=== PATIENT | female | born 1970 | race Caucasian/White ===

== ENCOUNTER 2020-02-06 09:38 | Emergency (ER) | payer BC, SELFPAY ==
[2020-02-06 09:51] VITALS: BP 127/81; PULSE 79; RESP 12; TEMP 37; O2SAT 96; BMI 31.1
--- NOTE | 2020-02-06 10:16 | XR_ITS ---
WS: [id number] WRIST RIGHT TECHNIQUE: 3 views of the right wrist CLINICAL INFORMATION: right wrist pain COMPARISON: None. FINDINGS: Mild degenerative arthritis radiocarpal joint. Mild ulna minus variance. Degenerative arthritis at th e DRUJ. Normal scaphoid and lunate. No acute fractures. XR/XR wrist RT min 3V* 72500 IMPRESSION: No acute fractures
--- NOTE | 2020-02-06 10:44 | ED_ITS ---
HPI - Extremity Problem General: Chief complaint: Extremity Problem,Nontraumatic Stated complaint: R WRIST PAIN Time Seen by Provider: 02/06/20 10:23 History of Present Illness: HPI Narrative: 89-year-old female patient presents to the emergency department with acute onset of right wrist pain x3 days. She reports works for [employer], frequent typing, [id number]. She states numbness and tingling in the fifth digit of the right hand. She reports pain radiates from the right wrist to the right forearm and down the right ulnar hand. She reports pain is worse with movement. Improves with immobility. MD Complaint: joint pain (Right wrist) Onset (ago): day(s) (3) Pain Consistency: intermittent Location: right and upper extremity Severity scale (1-10): 6 Quality: burning, aching and dull Radiation: proximal and distal Relieving factors: immobilization Exacerbating factors: range of motion Associated symptoms: Reports no associated symptoms; Deny chest pain, fever(s) or rash Review of Systems General: Reports: 10 or more systems reviewed and unremarkable except in HPI and below Const: Denies: fever(s), chills or diaphoresis Eyes: Denies: blurry vision or eye redness ENMT: Denies: throat pain, dental pain or disequilibrium Card: Denies: chest pain, palpitations or irregular heart rhythm Resp: Denies: dyspnea, productive cough, non-productive cough or wheezing GI: Denies: abdominal pain, nausea or vomiting : Denies: difficulty voiding or dysuria Musc: Reports: joint pain (Right wrist); Denies: neck pain or back pain Skin/Breast: Denies: rash or pruritus Neuro: Denies: headache(s), weakness in extremities or behavioral changes Zachary/Lymph: Denies: easy bruising Physical Exam Const: COMMON NORMALS: no acute distress, patient oriented x3, healthy appearing and alert GENERAL APPEARANCE: cooperative, comfortable and well hydrated HENMT: COMMON NORMALS: normocephalic, Normal external nose present and moist oral mucous membranes HEAD & SCALP: normocephalic NOSE: Normal external nose present Eye: COMMON NORMALS: Equal, round and reactive pupils present and EOMs intact bilaterally GENERAL EYE: appearance normal, both eyes and all related structures PUPIL: Yes Equal, round and reactive pupils present Neck/C-Spine: COMMON NORMALS: full ROM and no lymphadenopathy GENERAL: Yes normal visual inspection and Yes trachea midline CERVICAL SPINE: Yes cervical ROM normal Lymph: LYMPHATIC: no lymphadenopathy noted Chest: COMMONS NORMALS: normal inspection of the chest Resp: COMMON NORMALS: normal respiratory effort and clear to auscultation bilaterally AUSCULTATION: clear to auscultation bilaterally Cardio: COMMON NORMALS: regular rhythm, S1 normal heart sound present, S2 normal heart sound present and Peripheral pulses 2+ throughout RHYTHM: regular rhythm HEART SOUNDS: S1 normal heart sound present and S2 normal heart sound present PERIPHERAL PULSES: Peripheral pulses 2+ throughout GI: COMMON NORMALS: Soft to palpation and non-tender INSPECTION: Yes normal to inspection PALPATION: Yes Soft to palpation : COMMON NORMALS: Yes no CVA tenderness BLADDER/KIDNEY EXAM: Yes no CVA tenderness Back/Pelvis: COMMON NORMALS: no CVA tenderness and thoracic and lumbar spine normal to inspection Extremity: COMMON NORMALS: normal to inspection and capillary refill normal GENERAL: Yes normal exam except as noted RIGHT UPPER EXTREMITY: Yes wrist Right wrist: Yes inspection (Normal), Yes palpation (Ulnar wrist with tenderness) and Yes ROM (Limited flexion extension secondary to pain, + tinel, Phalen, neurovascular distally intact) Neuro: COMMON NORMALS: patient oriented x3 and no focal motor deficits SENSORIUM/ORIENTATION: Yes alert GAIT: Yes Normal gait present MONOFILAMENT EXAM PERFORMED: Yes (Normal findings right upper extremity, right hand distally) MOTOR EXAM: 5/5 motor strength present throughout Psych: COMMON NORMALS: mental status grossly normal, Normal thought process present and cooperative ACTIVITY/MOTOR BEHAVIOR: Yes appropriate eye contact THOUGHT PROCESS: Normal thought process present Skin: COMMON NORMALS: no rashes or lesions noted and turgor normal GENERAL SKIN EXAM: no rashes or lesions noted and turgor normal Course Vital Signs: Vital signs: Vital Signs Temperature 98.6 F 02/06/20 09:51 Pulse Rate 67 02/06/20 11:02 Respiratory Rate 12 02/06/20 09:51 Blood Pressure 127/81 02/06/20 09:51 Pulse Oximetry 97 02/06/20 11:02 MDM - Extremity (Nontraumatic) Imaging Data^: Other Xray: Radiologist's impression: [address] [address] XRay Report Signed Patient: Ana Lilia Kerns Unit #: [id number] : 1970 Age/Sex: 49 / F ADM Date: 02/06/20 Loc: ER Room/Bed: Attending Dr: Ordering Provider/Ordering MD: Ana Lilia Rush Date of Service: 02/06/20 Procedure(s): XR wrist RT min 3V* 12909 Accession Number(s): [id number] Report Number: [id number] WS: [id number] WRIST RIGHT TECHNIQUE: 3 views of the right wrist CLINICAL INFORMATION: right wrist pain COMPARISON: None. FINDINGS: Mild degenerative arthritis radiocarpal joint. Mild ulna minus variance. Degenerative arthritis at the DRUJ. Normal scaphoid and lunate. No acute fractures. XR/XR wrist RT min 3V* 22243 IMPRESSION: No acute fractures Dictated By: Favian Mejia MD Signed By: Favian Mejia MD Signed Date/Time: 02/06/20 1030 DD/ 1029 Discharge Plan Discharge Patient Disposition: Home Clinical Impression: Right wrist pain, Right carpal tunnel syndrome Condition: Stable Prescriptions: New Medrol (Kayode) 4 mg tablets,dose pack See Rx Instructions .ROUTE .COMPLEX Qty: 21 RF: 0 IBU 800 mg tablet 800 mg PO TID PRN (Reason: pain) Qty: 30 RF: 0 Discharge Orders: Discharge Order (Routine); Ordered 02/06/20 Ordered By: Ana Lilia Rush Discharge Diet: Usual diet Discharge Activity: Limit activity as instructed Patient Instructions: Carpal Tunnel Syndrome (ED), Arthralgia (ED) Activity Restrictions/Additional Instructions: Wear right wrist splint as much as possible, wear especially at night. He may take the splint off as needed for showers and comfort, goal of splint is to keep wrist immobilized relaxing tendons. Follow-up with your primary care provider in 7 days, further evaluation/testing may be needed Return to the emergency department if you develop numbness of the hand, fever chills, swelling of the right upper extremity or inability to move your fingers. Stand Alone Forms: Work/School Release Discharge Date/Time: 02/06/20 11:01 Coding Level of Care Code ED Filling Room Operator for Olivia Fwd Exam Comprehensive
[2020-02-06 11:02] VITALS: PULSE 67; O2SAT 97
--- NOTE | 2020-02-06 14:10 | DCPLANNER ---
night manager had message to speak with patient about getting established with a primary care physician. night manager called phone number [phone], unable to speak with patient at this time, a voicemail was left for patient to return caseworker protective services phone call.
--- NOTE | 2020-02-07 10:44 | DCPLANNER ---
Patient returned lead case manager phone call, stated that she would like help in getting established with a primary care physician. condominium association manager [place] [facility], spoke with [place]. Gave clinic patients information, a follow up appointment was scheduled for Thursday, February 13, 2020 at 1:[address] Dorsey. condominium association manager called patient and informed patient of the scheduled appointment. Patient stated that she would attend the appointment.
--- NOTE | 2020-02-22 16:43 | DCPLANNER ---
Patient had a follow up appointment scheduled for 02.13.20 with [facility] with Dr. Dorsey - patient did attend appointment,
== END 2020-02-06 11:01 | disposition home or self-care (01) ==
PROVIDERS: Emergency Provider Nurse Practitioner Family
DX: G56.01 Carpal tunnel syndrome, right upper limb (principal)
CPT/HCPCS: 12345; 29125; 73110; 99281; 99283

== ENCOUNTER 2020-04-06 16:11 | Emergency (ER) | payer SELFPAY ==
[2020-04-06 16:19] VITALS: BP 136/82; PULSE 84; RESP 18; TEMP 36.4; O2SAT 97; BMI 31.1
[2020-04-06 18:00] VITALS: BP 104/54; PULSE 72; RESP 18; O2SAT 96
[2020-04-06 18:33] LABS: Add Urine Microscopic? NO
[2020-04-06 18:49] LABS: Urine Appearance Clear (CLEAR); Urine Color Yellow (Yellow); pH Urine 5 (5-7)
[2020-04-06 18:50] LABS: Bilirubin Urine Neg (Negative); Blood Urine Neg (Negative); Glucose Urine UA Norm (Normal); Ketones Urine Negative (Negative); Leukocyte Esterase Urine Negative (Negative); Nitrate Urine Negative (Negative); Protein Urine Neg (Negative); Urobilinogen Urine Norm (Negative)
--- NOTE | 2020-04-06 19:14 | W.ED.FEMALGU ---
HPI - Female Genitourinary General: Chief complaint: Urogenital-Female Stated complaint: lower back pain Time Seen by Provider: 04/06/20 17:19 Source: patient Mode of arrival: ambulatory Limitations: no limitations History of Present Illness: MD elicited complaint: flank pain Onset (ago): day(s) (1) Location of symptoms: flank Severity: severe Female Urogenital Radiation: Non-Radiating Severity scale (1-10): 10 Quality of pain: cramping Consistency: intermittent Vaginal discharge: none Vaginal bleeding: none Exacerbating factors: movement Relieving factors: none Associated symptoms: Deny abdominal pain, short of breath, fevers/chills, headache(s), nausea, rash, seizures, syncope, vaginal discharge or weakness Treatment prior to arrival: none Review of Systems General: Reports: 10 or more systems reviewed and unremarkable except in HPI and below Const: Denies: fever(s), chills or body aches Eyes: Denies: change in vision or blurry vision ENMT: Denies: throat pain, enlarged tonsils, odynophagia, hoarseness, mouth pain or swelling of lips/tongue Card: Denies: syncope Resp: Denies: dyspnea, productive cough or non-productive cough GI: Denies: abdominal pain or nausea : Denies: vaginal discharge Musc: Denies: neck pain, back pain or extremity swelling Skin/Breast: Denies: rash, pruritus or erythema Neuro: Denies: headache(s) Endo: Denies: polyuria, polydipsia or tired all the time PFS ED PFSH: Medical History Carpal tunnel syndrome of right wrist Chronic back pain greater than 3 months duration Hypertension Obesity (BMI 35.0-39.9 without comorbidity) Symptomatic postsurgical menopause Surgical History Hx of hysterectomy Family History Mother Cancer LEUKEMIA, Brain aneurysm Social History Smoking and tobacco status: current every day smoker cigarettes Packs smoked per day: 1 Alcohol intake: former 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 Physical Exam Const: COMMON NORMALS: no acute distress, average body habitus, patient oriented x3, no limitations, healthy appearing, alert and well nourished HENMT: COMMON NORMALS: normocephalic, atraumatic and moist oral mucous membranes HEAD & SCALP: normocephalic and atraumatic Neck/C-Spine: COMMON NORMALS: no meningeal signs and no JVD Resp: COMMON NORMALS: normal respiratory effort, No retractions, No use of accessory muscles, clear to auscultation bilaterally and percussion normal AUSCULTATION: clear to auscultation bilaterally PERCUSSION: percussion normal Cardio: COMMON NORMALS: no JVD, regular rate, regular rhythm, S1 normal heart sound present, S2 normal heart sound present, No gallops present (Cardio), No clicks present (Cardio), No murmurs present (Cardio), No rub (Cardio) and Peripheral pulses 2+ throughout RATE: regular rate RHYTHM: regular rhythm HEART SOUNDS: S1 normal heart sound present and S2 normal heart sound present PERIPHERAL PULSES: Peripheral pulses 2+ throughout GI: COMMON NORMALS: Normal to inspection, nondistended, normoactive bowel sounds present, Soft to palpation, non-tender, No hepatosplenomegaly present, no masses and no bruits PALPATION: Yes Soft to palpation and Yes No hepatosplenomegaly present Back/Pelvis: GENERAL BACK: Yes CVA tenderness CVA tenderness: right Extremity: COMMON NORMALS: normal to inspection, full ROM, capillary refill normal, no calf tenderness and no pedal edema Neuro: COMMON NORMALS: patient oriented x3 SENSORIUM/ORIENTATION: Yes alert MENINGEAL SIGNS: Yes no meningeal signs Skin: COMMON NORMALS: no rashes or lesions noted, no wounds, turgor normal, no jaundice, no petechiae and no mottling GENERAL SKIN EXAM: no rashes or lesions noted and turgor normal Course Vital Signs: Vital signs: Vital Signs Temperature 97.6 F 04/06/20 16:19 Pulse Rate 72 04/06/20 18:00 Respiratory Rate 18 04/06/20 18:00 Blood Pressure 104/54 04/06/20 18:00 Pulse Oximetry 96 04/06/20 18:00 MDM - Female [facility] Narrative: Medical decision making narrative: The patient presented to the ED with right flank pain. We discussed investigation options and she agreed to start with a UA because she felt she had a kidney infection. The patient however eloped from the ED before the results of her UA were in. Lab Data: Labs: Lab Results 04/06/20 Range/Units 17:53 Urine Color Yellow (Yellow) Urine Appearance Clear (CLEAR) Urine pH 5 (5-7) Ur Specific Gravit y 1.010 (1.005-1.030) Urine Protein Neg (Negative) Urine Glucose (UA) Norm (Normal) Urine Ketones Negative (Negative) Urine Blood Neg (Negative) Urine Nitrate Negative (Negative) Urine Bilirubin Neg (Negative) Urine Urobilinogen Norm (Negative) mg/dL Ur Leukocyte Elzbieta ase Negative (Negative) Discharge Plan Discharge Patient Disposition: Left Against Medical Advice Clinical Impression: Acute flank pain Prescriptions: No Action IBU 800 mg tablet 800 mg PO TID PRN (Reason: pain) Qty: 90 RF: 1 Prinivil 20 mg tablet 20 mg PO DAILY@0500 RF: 0 gabapentin 300 mg capsule 300 mg PO BID@ RF: 0 cetirizine 10 mg Tablet 10 mg PO DAILY@0500 RF: 0 Patient Instructions: Abdominal Pain (ED) Coding Level of Care Code ED [employer] Assistant for Olivia Fwd Exam Comprehensive
== END 2020-04-06 19:07 | disposition left against medical advice (07) ==
PROVIDERS: Emergency Provider Family Medicine
DX: R10.9 Unspecified abdominal pain (principal); Z53.21 Procedure and treatment not carried out due to patient leaving prior to being seen by health care provider; I10 Essential (primary) hypertension; F17.210 Nicotine dependence, cigarettes, uncomplicated
CPT/HCPCS: 12345; 81003; 99281; 99282

== ENCOUNTER → 2020-06-03 09:11 | Outpatient (BNVA) | payer OTHER, SELFPAY | PROVIDERS: Visit Provider Family Medicine | DX: Z20.822 Contact with and (suspected) exposure to COVID-19 (principal); R50.9 Fever, unspecified | CPT/HCPCS: 87400; 87635 ==

== ENCOUNTER → 2020-08-29 10:46 | Outpatient (BNVA) | payer SELFPAY | PROVIDERS: PCP Family Medicine Adult Medicine; Visit Provider Family Medicine Adult Medicine | DX: M25.541 Pain in joints of right hand (principal); M25.542 Pain in joints of left hand; E66.9 Obesity, unspecified; I10 Essential (primary) hypertension; Z68.33 Body mass index [BMI] 33.0-33.9, adult; F17.210 Nicotine dependence, cigarettes, uncomplicated | CPT/HCPCS: 80053; 80061; 83036; 84443; 85025; 85651; 86160; 86162; 86235; 86255; 86376 ==

== ENCOUNTER → 2020-12-01 10:35 | Outpatient (BNVA) | payer SELFPAY | PROVIDERS: PCP Family Medicine Adult Medicine; Visit Provider Nurse Practitioner Family | DX: J06.9 Acute upper respiratory infection, unspecified (principal); Z20.822 Contact with and (suspected) exposure to COVID-19 | CPT/HCPCS: 87426 ==

== ENCOUNTER 2020-12-03 08:18 | Outpatient (CLI) | payer SELFPAY ==
[2020-12-03 09:10] VITALS: BP 116/77; PULSE 103; RESP 16; TEMP 37; O2SAT 97
[2020-12-03 11:17] VITALS: BP 111/74; PULSE 61; RESP 18; TEMP 36.6; O2SAT 97
== END 2020-12-03 14:11 | disposition home or self-care (01) ==
PROVIDERS: PCP Family Medicine Adult Medicine; Visit Provider Nurse Practitioner Family
DX: U07.1 COVID-19 (principal)
CPT/HCPCS: 96365

== ENCOUNTER 2023-10-03 14:16 | Emergency (ER) | payer MEDICAID, SELFPAY ==
[2023-10-03 14:19] VITALS: BP 153/83; PULSE 66; RESP 14; TEMP 36.8; O2SAT 96
== END 2023-10-03 15:16 | disposition left against medical advice (07) ==
PROVIDERS: Emergency Provider Family Medicine; PCP Family Medicine Adult Medicine
DX: Z53.21 Procedure and treatment not carried out due to patient leaving prior to being seen by health care provider (principal)
CPT/HCPCS: 81000

== ENCOUNTER → 2023-10-05 10:55 | Outpatient (BNVA) | payer MEDICAID, SELFPAY | PROVIDERS: PCP Family Medicine Adult Medicine; Visit Provider Family Medicine Adult Medicine | DX: M16.11 Unilateral primary osteoarthritis, right hip (principal); I10 Essential (primary) hypertension; E78.5 Hyperlipidemia, unspecified; M25.541 Pain in joints of right hand; M25.542 Pain in joints of left hand; Z79.899 Other long term (current) drug therapy | CPT/HCPCS: 80053; 80061; 84443; 85025; 85651 ==

== ENCOUNTER → 2023-11-02 13:37 | Outpatient (BNVA) | payer MEDICAID, SELFPAY | PROVIDERS: PCP Family Medicine Adult Medicine; Referring Provider Family Medicine Adult Medicine; Visit Provider Nurse Practitioner | DX: M25.551 Pain in right hip (principal); M16.11 Unilateral primary osteoarthritis, right hip | CPT/HCPCS: 73502 ==

== ENCOUNTER 2023-12-20 11:07 | Outpatient (CLI) | payer MEDICAID, SELFPAY ==
[2023-12-20 11:27] LABS: Charge for UA Resulting for Rev
[2023-12-20 11:32] LABS: Basophils % 0.2 %; Eosinophils # 0.2 10^3/uL (0.0-0.8); Eosinophils % 1.3 %; Hematocrit 46.6 % (36-47); Lymphocytes # 4.3 10^3/uL (0.8-4.8); Lymphocytes % 32.2 %; Mean Corpuscular HGB Conc 32.8 g/dL (30-55); Mean Corpuscular Hemoglobin 31.3 pg (27-33); Mean Corpuscular Volume 95.3 fl (85-98); Mean Platelet Volume 11.8 fL (7.4-10.4); Monocytes % 7.1 %; Neutrophils # 7.93 10^3/uL (1.8-7.7); Nucleated Red Blood Cells % 0 %; Platelet Count 248 10^3/cmm (157-399); Red Blood Count 4.89 10^6/uL (3.85-5.65); Red Cell Distribution Width 12.6 % (12.1-15.1); White Blood Count 13.44 10^3/uL (3.29-11.43)
[2023-12-20 11:45] LABS: Bilirubin Urine Neg (Negative); Blood Urine Neg (Negative); Glucose Urine UA Norm (Normal); Ketones Urine Negative (Negative); Leukocyte Esterase Urine Negative (Negative); Nitrate Urine Negative (Negative); Protein Urine Neg (Negative); Specific Gravity, Urine 1.005 (1.005-1.030); Urine Appearance Clear (CLEAR); Urine Color Yellow (Yellow); Urobilinogen Urine Norm (Negative); pH Urine 7 (5-7)
[2023-12-20 11:54] LABS: Alanine Aminotransferase 22 U/L (0-33); Albumin Level 4.4 g/dL (3.5-5.2); Alkaline Phosphatase 122 U/L (35-105); Aspartate Amino Transferase 26 U/L (0-32); Blood Urea Nitrogen 12 mg/dL (6-20); Carbon Dioxide 24 mmol/L (22-29); Chloride 105 mmol/L (98-107); Glomerular Filtration Rate 105.4 mL/min (90-130); Glucose 122 mg/dL (65-115); Osmolality Calculated 293 mOsm/kg (285-295); Sodium 141 mmol/L (136-145); Total Bilirubin 0.3 mg/dL (0.15-1.2); Total Protein 7.4 g/dL (6.6-8.7)
[2023-12-20 12:29] LABS: Slide Review Slide Review Perform
== END 2023-12-20 11:08 | disposition home or self-care (01) ==
PROVIDERS: PCP Family Medicine Adult Medicine; Visit Provider Specialist
DX: M16.11 Unilateral primary osteoarthritis, right hip (principal)
CPT/HCPCS: 36415; 80053; 81003; 81015; 85025

== ENCOUNTER 2023-12-23 15:39 | Emergency (ER) | payer MEDICAID, SELFPAY ==
[2023-12-23 15:47] VITALS: BP 121/79; PULSE 78; RESP 16; TEMP 36.7; O2SAT 94
--- NOTE | 2023-12-23 16:38 | XRR_ITS ---
PROCEDURE INFORMATION: Exam: XR Chest Exam date and time: 12/23/2023 4:43 PM Age: 53 years old Clinical indication: Shortness of breath; Dyspnea/cough, weakness, dizziness, fatigue TECHNIQUE: Imaging protocol: Radiologic exam of the chest. Views: 1 view. COMPARISON: No relevant prior studies available. FINDINGS: Lungs: Unremarkable. No consolidation. Pleural spaces: Unremarkable. No pleural effusion. No pneumothorax. Heart/Mediastinum: Unremarkable. No cardiomegaly. Bones/joints: Unremarkable. XR/XR chest 1V portable [id number] IMPRESSION: No acute findings.
--- NOTE | 2023-12-23 16:53 | ECG_ITS ---
[facility] Test Date: 2023-12-23 Pat Name: Ana Lilia Kerns Department: Room: Gender: Female Investment Fund Manager: : 1970 Requested By: Toño Mike Order Number: [id number] Morel MD: Krishan Serrato M.D. Measurements Intervals [place] Rate: 70 P: 53 [place]: 155 QRS: 22 QRSD: 85 T: 44 QT: 383 QTc: 415 Interpretive Statements SINUS RHYTHM POSSIBLE LEFT ATRIAL ENLARGEMENT [-0.1mV P-WAVE IN V1/V2] LOW QRS VOLTAGE IN PRECORDIAL LEADS [QRS DEFLECTION < 1.0 mV IN CHEST LEADS] No previous ECG available for comparison Electronically Signed On 12-23-2023 20:02:37 CDT by Krishan Serrato M.D. [id number]
[2023-12-23 16:59] LABS: Charge for UA Resulting for Rev
[2023-12-23 17:00] VITALS: BP 111/80; PULSE 69; O2SAT 93
--- NOTE | 2023-12-23 17:04 | ED_ITS ---
Documented by User: Toño Mae DO 12/24/23 13:53 HPI - Weakness 2 General: Chief complaint: Weakness Stated complaint: dizziness/fatigue/ nausea Time Seen by Provider: 12/23/23 16:37 History of Present Illness: 53-year-old female presents emergency ro om with dizziness fatigue nausea states for the last 2 to 3 weeks every day in the afternoon she reports she has flulike symptoms for which she also knows to change positions sometimes. Vertiginous symptoms resolved spontaneously. She had chest pain management for the last 3 days not having any chest pain at all at this time. 3 days ago she was seen for preop work for right hip surgery that is upcoming her white count was slightly elevated at that time she denies any fevers sweats or chills denies any dysuria urgency or frequency no nausea vomiting or diarrhea. Is currently wearing a Holter monitor. Associated symptoms: Denies chest pain, chills, dysuria or fever(s) Review of Systems 2 Const: Reports: fatigue and malaise; Denies: fever(s) or chills Card: Denies: chest pain Resp: Denies: dyspnea GI: Denies: abdominal pain : Denies: dysuria, urinary frequency or urinary urgency Musc: Denies: neck pain or back pain Skin/Breast: Denies: rash PFSH ED 2 PFSH: Medical History Elevated blood pressure reading in office with white coat syndrome, without diagnosis of hypertension Chronic back pain greater than 3 months duration Osteoarthritis of right hip Dyslipidemia (high LDL; low HDL) Joint pain in both hands Obesity (BMI 35.0-39.9 without comorbidity) Hypertension Carpal tunnel syndrome of right wrist Symptomatic postsurgical menopause Surgical History Hx of hysterectomy Family History Mother Cancer LEUKEMIA, Brain aneurysm Social History Smoking and tobacco/nicotine status: never used tobacco/nicotine Alcohol intake: former 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 Substance/Drug Use: never Physical Exam 2 Const: COMMON NORMALS: no acute distress GENERAL APPEARANCE: cooperative and comfortable ORIENTATION/CONSCIOUSNESS: Yes awake, Yes oriented to person, Yes oriented to place and Yes oriented to time HENMT: COMMON NORMALS: normocephalic, atraumatic and hearing grossly normal bilaterally HEAD & SCALP: normocephalic and atraumatic Resp: COMMON NORMALS: normal respiratory effort, No retractions, No use of accessory muscles and clear to auscultation bilaterally AUSCULTATION: clear to auscultation bilaterally Cardio: COMMON NORMALS: regular rate, regular rhythm and No murmurs present (Cardio) RATE: regular rate RHYTHM: regular rhythm GI: COMMON NORMALS: Soft to palpation and No hepatosplenomegaly present A USCULTATION: Yes normoactive bowel sounds PALPATION: Yes Soft to palpation, No Tenderness to palpation present (GI), No Guarding due to palpation present (GI) and Yes No hepatosplenomegaly present Extremity: COMMON NORMALS: normal to inspection, capillary refill normal, no clubbing, cyanosis or edema, no calf tenderness and no pedal edema Neuro: SENSORIUM/ORIENTATION: Yes oriented to person, Yes oriented to place and Yes oriented to time Skin: COMMON NORMALS: no rashes or lesions noted GENERAL SKIN EXAM: no rashes or lesions noted Course 2 Vital Signs: Vital signs: Vital Signs Temperature 98.1 F 12/23/23 15:47 Pulse Rate 78 12/23/23 21:13 Respiratory Rate 21 H 12/23/23 18:30 Blood Pressure 127/52 12/23/23 21:13 Pulse Oximetry 97 12/23/23 21:13 Oxygen Delivery Me thod Room Air 12/23/23 17:30 MDM - Weakness Medical Decision Making Care signed out to Dr. Mcduffie at change of shift. See final notes for diagnosis and disposition. Patient care was transferred over to myself at shift change, lab work was reviewed, this was discussed with the patient. Patient be discharged home to follow-up with her PCP within 7 days for further evaluation and treatment as needed. Medical Records I reviewed the patient's medical records. Lab Data I reviewed the patient's lab results. 12/23/23 16:55 12/23/23 16:55 Radiology Impressions Chest X-Ray 12/23/23 16:38 IMPRESSION: No acute findings. Laboratory Results WBC 15.24 10^3/uL (3.29-11.43) H 12/23/23 16:55 RBC 5.01 10^6/uL (3.85-5.65) 12/23/23 16:55 Hgb 15.70 g/dL (11.27-16.99) 12/23/23 16:55 Hct 47.2 % (36-47) H 12/23/23 16:55 MCV 94.2 fl (85-98) 12/23/23 16:55 MCH 31.3 pg (27-33) 12/23/23 16:55 MCHC 33.3 g/dL (30-55) 12/23/23 16:55 RDW 12.6 % (12.1-15.1) 12/23/23 16:55 Plt Count 246 10^3/cmm (157-399) 12/23/23 16:55 MPV 11.7 fL (7.4-10.4) H 12/23/23 16:55 Neut % (Auto) 60.5 % 12/23/23 16:55 Lymph % (Auto) 31.2 % 12/23/23 16:55 Worth % (Auto) 6.8 % 12/23/23 16:55 Eos % (Auto) 0.9 % 12/23/23 16:55 Baso % (Auto) 0.3 % 12/23/23 16:55 Neut # (Auto) 9.22 10^3/uL (1.8-7.7) H 12/23/23 16:55 Lymph # (Auto) 4.8 10^3/uL (0.8-4.8) 12/23/23 16:55 Worth # (Auto) 1.0 10^3/uL (0.2-0.9) H 12/23/23 16:55 Eos # (Auto) 0.1 10^3/uL (0.0-0.8) 12/23/23 16:55 Baso # (Auto) 0.0 10^3/uL (0.0-0.1) 12/23/23 16:55 Nucleated RBC % (auto) 0 % 12/23/23 16:55 Nucleated RBCs # 0.0 /100WBC 12/23/23 16:55 Sodium 140 mmol/L (136-145) 12/23/23 16:55 Potassium 4.2 mmol/L (3.5-5.1) 12/23/23 16:55 Chloride 103 mmol/L (98-107) 12/23/23 16:55 Carbon Dioxide 26 mmol/L (22-29) 12/23/23 16:55 Anion Gap 15.2 (5-19) 12/23/23 16:55 BUN 17 mg/dL (6-20) 12/23/23 16:55 Creatinine 0.7 mg/dL (0.5-0.9) 12/23/23 16:55 GFR Calculation 88.2 mL/min (90-130) L 12/23/23 16:55 Glucose 93 mg/dL (65-115) 12/23/23 16:55 Calculated Osmolality 291 mOsm/kg (285-295) 12/23/23 16:55 Calcium 9.5 mg/dL (8.5-10.5) 12/23/23 16:55 Total Bilirubin 0.4 mg/dL (0.15-1.2) 12/23/23 16:55 AST 25 U/L (0-32) 12/23/23 16:55 ALT 26 U/L (0-33) 12/23/23 16:55 Alkaline Phosphatase 103 U/L (35-105) 12/23/23 16:55 Total Protein 7.3 g/dL (6.6-8.7) 12/23/23 16:55 Albumin 4.5 g/dL (3.5-5.2) 12/23/23 16:55 Globulin 2.8 g/dL (1.3-4.6) 12/23/23 16:55 Urine Color Yellow (Yellow) 12/23/23 16:53 Urine Appearance Clear (CLEAR) 12/23/23 16:53 Urine pH 6.5 (5-7) 12/23/23 16:53 Ur Specific [place] 1.017 (1.005-1.030) 12/23/23 16:53 Urine Protein Negative (Negative) 12/23/23 16:53 Urine Glucose (UA) Negative (Normal) 12/23/23 16:53 Urine Ketones Negative (Negative) 12/23/23 16:53 Urine Blood Negative (Negative) 12/23/23 16:53 Urine Nitrate Negative (Negative) 12/23/23 16:53 Urine Bilirubin Negative (Negative) 12/23/23 16:53 Urine Urobilinogen 1.0 mg/dL (Negative) 12/23/23 16:53 Ur Leukocyte Esterase Negative (Negative) 12/23/23 16:53 Urine RBC 3-5 /hpf (0-2) 12/23/23 16:53 Urine WBC 0-5 /hpf (0-5) 12/23/23 16:53 Ur Squamous Epith Cells 0-5 /hpf (0-5) 12/23/23 16:53 Amorphous Sediment Not Reportable 12/23/23 16:53 Urine Bacteria None seen /hpf (NONE) 12/23/23 16:53 Hyaline Casts 0.40 /lpf 12/23/23 16:53 Coronavirus 229E (PCR) Not detected (NOT DETECT) 12/23/23 17:13 SARS-CoV-2 (PCR) Not detected (NOT DETECT) 12/23/23 17:13 EKG Data EKG 1: Interpretation: EKG shows a normal sinus rhythm with a rate of [address] changes are noted IA interval 155 QTc is 404. Normal axis. Discharge Plan Discharge Patient Disposition: Home Clinical Impression: Dizziness Nausea & vomiting Qualifiers: Vomiting type: unspecified Qualified Code(s): R11.2 - Nausea with vomiting, unspecified Fatigue Qualifiers: Fatigue type: unspecified Qualified Code(s): R53.83 - Other fatigue Condition: Stable Prescriptions: No Action methocarbamol 750 mg tablet 750 mg PO Q8H PRN (Reason: muscle spasticity) Qty: 30 0RF loratadine 10 mg tablet 10 mg PO DAILY PRN (Reason: allergy symptoms) Qty: 90 3RF gabapentin 300 mg capsule See Rx Instructions .ROUTE .COMPLEX Qty: 60 5RF Dose Instruction: TAKE 1 CAPSULE BY MOUTH TWO TIMES A DAY FOR CHRONIC PAIN AND POST MENOPAUSAL SYMPTOMS Rx Instructions: TAKE 1 CAPSULE BY MOUTH TWO TIMES A DAY FOR CHRONIC PAIN AND POST MENOPAUSAL SYMPTOMS fluticasone propionate [Flonase Allergy Relief] 50 mcg/actuation spray,suspension 2 spray intranasal DAILY Qty: 16 5RF Rx Instructions: administer into each nostril ibuprofen 200 mg tablet 200 mg PO Q6H PRN (Reason: pain) Qty: 90 1RF Discharge Orders: Discharge ED (Routine); Ordered 12/23/23 Ordered By: Cristi Mcduffie Referrals: Denzel Maharaj MD [Primary Care Provider] - 1 week Patient Instructions: Acute Nausea and Vomiting (DC), Dizziness (ED), Fatigue (ED) Activity Restrictions/Additional Instructions: Your lab work performed in ER did not show any reason for your symptomatology. Your white blood count was still mildly elevated at approximately 15,000, please follow-up with your family practice physician within next 7 days for further evaluation and treatment as needed. Thank you for choosing [facility] for your healthcare needs today. Please realize that you were seen in the emergency department and that we are providing you with an emergency medical screening exam and this may not be a complete and all exclusive of all testing and/or medical workup we may need to determine your element or severity of your illness. It is very important that you follow-up as instructed with your primary care provider or specialist for the additional evaluation and to discuss your medical treatment plan. You may return to the emergency department should you have concerns or if your condition changes or worsens in any way. Coding Level of Care Code ED Nutrition Helper for Chg Fwd Related Data Previous Rx's Medication Instructions Recorded fluticasone propionate 50 2 spray intranasal DAILY allergy 10/06/23 mcg/actuation nasal symptoms #16 grams spray,suspension (Flonase Allergy Relief) gabapentin 300 mg capsule See Rx Instructions .Route 10/06/23 .COMPLEX #60 caps loratadine 10 mg tablet 10 mg PO DAILY PRN allergy 10/06/23 symptoms #90 tabs methocarbamol 750 mg tablet 750 mg PO Q8H PRN muscle 11/01/23 spasticity #30 tabs ibuprofen 200 mg tablet 200 mg PO Q6H PRN pain #90 tabs 11/29/23 Allergies Allergy/AdvReac Type Severity Reaction Status Date / Time No Known Allergies Allergy Verified 12/23/23 15:53 Documented by User: Cristi Mcduffie DO 12/23/23 21:04 HPI - Weakness 2 General: Chief complaint: Weakness Stated complaint: dizziness/fatigue/ nausea Time Seen by Provider: 12/23/23 16:37 PFSH ED 2 PFSH: Medical History Elevated blood pressure reading in office with white coat syndrome, without diagnosis of hypertension Chronic back pain greater than 3 months duration Osteoarthritis of right hip Dyslipidemia (high LDL; low HDL) Joint pain in both hands Obesity (BMI 35.0-39.9 without comorbidity) Hypertension Carpal tunnel syndrome of right wrist Symptomatic postsurgical menopause Surgical History Hx of hysterectomy Family History Mother Cancer LEUKEMIA, Brain aneurysm Social History Smoking and tobacco/nicotine status: never used tobacco/nicotine Alcohol intake: former 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 Substance/Drug Use: never Course 2 Vital Signs: Vital signs: Vital Signs Temperature 98.1 F 12/23/23 15:47 Pulse Rate 78 12/23/23 21:13 Respiratory Rate 21 H 12/23/23 18:30 Blood Pressure 127/52 12/23/23 21:13 Pulse Oximetry 97 12/23/23 21:13 Oxygen Delivery Me thod Room Air 12/23/23 17:30 MDM - Weakness Medical Decision Making Patient care was transferred over to myself at shift change, lab work was reviewed, this was discussed with the patient. Patient be discharged home to follow-up with her PCP within 7 days for further evaluation and treatment as needed. Lab Data 12/23/23 16:55 12/23/23 16:55 Radiology Impressions Chest X-Ray 12/23/23 16:38 IMPRESSION: No acute findings. Laboratory Results WBC 15.24 10^3/uL (3.29-11.43) H 12/23/23 16:55 RBC 5.01 10^6/uL (3.85-5.65) 12/23/23 16:55 Hgb 15.70 g/dL (11.27-16.99) 12/23/23 16:55 Hct 47.2 % (36-47) H 12/23/23 16:55 MCV 94.2 fl (85-98) 12/23/23 16:55 MCH 31.3 pg (27-33) 12/23/23 16:55 MCHC 33.3 g/dL (30-55) 12/23/23 16:55 RDW 12.6 % (12.1-15.1) 12/23/23 16:55 Plt Count 246 10^3/cmm (157-399) 12/23/23 16:55 MPV 11.7 fL (7.4-10.4) H 12/23/23 16:55 Neut % (Auto) 60.5 % 12/23/23 16:55 Lymph % (Auto) 31.2 % 12/23/23 16:55 Worth % (Auto) 6.8 % 12/23/23 16:55 Eos % (Auto) 0.9 % 12/23/23 16:55 Baso % (Auto) 0.3 % 12/23/23 16:55 Neut # (Auto) 9.22 10^3/uL (1.8-7.7) H 12/23/23 16:55 Lymph # (Auto) 4.8 10^3/uL (0.8-4.8) 12/23/23 16:55 Worth # (Auto) 1.0 10^3/uL (0.2-0.9) H 12/23/23 16:55 Eos # (Auto) 0.1 10^3/uL (0.0-0.8) 12/23/23 16:55 Baso # (Auto) 0.0 10^3/uL (0.0-0.1) 12/23/23 16:55 Nucleated RBC % (auto) 0 % 12/23/23 16:55 Nucleated RBCs # 0.0 /100WBC 12/23/23 16:55 Sodium 140 mmol/L (136-145) 12/23/23 16:55 Potassium 4.2 mmol/L (3.5-5.1) 12/23/23 16:55 Chloride 103 mmol/L (98-107) 12/23/23 16:55 Carbon Dioxide 26 mmol/L (22-29) 12/23/23 16:55 Anion Gap 15.2 (5-19) 12/23/23 16:55 BUN 17 mg/dL (6-20) 12/23/23 16:55 Creatinine 0.7 mg/dL (0.5-0.9) 12/23/23 16:55 GFR Calculation 88.2 mL/min (90-130) L 12/23/23 16:55 Glucose 93 mg/dL (65-115) 12/23/23 16:55 Calculated Osmolality 291 mOsm/kg (285-295) 12/23/23 16:55 Calcium 9.5 mg/dL (8.5-10.5) 12/23/23 16:55 Total Bilirubin 0.4 mg/dL (0.15-1.2) 12/23/23 16:55 AST 25 U/L (0-32) 12/23/23 16:55 ALT 26 U/L (0-33) 12/23/23 16:55 Alkaline Phosphatase 103 U/L (35-105) 12/23/23 16:55 Total Protein 7.3 g/dL (6.6-8.7) 12/23/23 16:55 Albumin 4.5 g/dL (3.5-5.2) 12/23/23 16:55 Globulin 2.8 g/dL (1.3-4.6) 12/23/23 16:55 Urine Color Yellow (Yellow) 12/23/23 16:53 Urine Appearance Clear (CLEAR) 12/23/23 16:53 Urine pH 6.5 (5-7) 12/23/23 16:53 Ur Specific [place] 1.017 (1.005-1.030) 12/23/23 16:53 Urine Protein Negative (Negative) 12/23/23 16:53 Urine Glucose (UA) Negative (Normal) 12/23/23 16:53 Urine Ketones Negative (Negative) 12/23/23 16:53 Urine Blood Negative (Negative) 12/23/23 16:53 Urine Nitrate Negative (Negative) 12/23/23 16:53 Urine Bilirubin Negative (Negative) 12/23/23 16:53 Urine Urobilinogen 1.0 mg/dL (Negative) 12/23/23 16:53 Ur Leukocyte Esterase Negative (Negative) 12/23/23 16:53 Urine RBC 3-5 /hpf (0-2) 12/23/23 16:53 Urine WBC 0-5 /hpf (0-5) 12/23/23 16:53 Ur Squamous Epith Cells 0-5 /hpf (0-5) 12/23/23 16:53 Amorphous Sediment Not Reportable 12/23/23 16:53 Urine Bacteria None seen /hpf (NONE) 12/23/23 16:53 Hyaline Casts 0.40 /lpf 12/23/23 16:53 Coronavirus 229E (PCR) Not detected (NOT DETECT) 12/23/23 17:13 SARS-CoV-2 (PCR) Not detected (NOT DETECT) 12/23/23 17:13 All radiology interpretation(s) finalized by discharge Discharge Plan Discharge Patient Disposition: Home Clinical Impression: Dizziness Nausea & vomiting Qualifiers: Vomiting type: unspecified Qualified Code(s): R11.2 - Nausea with vomiting, unspecified Fatigue Qualifiers: Fatigue type: unspecified Qualified Code(s): R53.83 - Other fatigue Condition: Stable Prescriptions: No Action methocarbamol 750 mg tablet 750 mg PO Q8H PRN (Reason: muscle spasticity) Qty: 30 0RF loratadine 10 mg tablet 10 mg PO DAILY PRN (Reason: allergy symptoms) Qty: 90 3RF gabapentin 300 mg capsule See Rx Instructions .ROUTE .COMPLEX Qty: 60 5RF Dose Instruction: TAKE 1 CAPSULE BY MOUTH TWO TIMES A DAY FOR CHRONIC PAIN AND POST MENOPAUSAL SYMPTOMS Rx Instructions: TAKE 1 CAPSULE BY MOUTH TWO TIMES A DAY FOR CHRONIC PAIN AND POST MENOPAUSAL SYMPTOMS fluticasone propionate [Flonase Allergy Relief] 50 mcg/actuation spray,suspension 2 spray intranasal DAILY Qty: 16 5RF Rx Instructions: administer into each nostril ibuprofen 200 mg tablet 200 mg PO Q6H PRN (Reason: pain) Qty: 90 1RF Discharge Orders: Discharge ED (Routine); Ordered 12/23/23 Ordered By: Cristi Mcduffie Referrals: Denzel Maharaj MD [Primary Care Provider] - 1 week Patient Instructions: Acute Nausea and Vomiting (DC), Dizziness (ED), Fatigue (ED) Activity Restrictions/Additional Instructions: Your lab work performed in ER did not show any reason for your symptomatology. Your white blood count was still mildly elevated at approximately 15,000, please follow-up with your family practice physician within next 7 days for further evaluation and treatment as needed. Thank you for choosing [facility] for your healthcare needs today. Please realize that you were seen in the emergency department and that we are providing you with an emergency medical screening exam and this may not be a complete and all exclusive of all testing and/or medical workup we may need to determine your element or severity of your illness. It is very important that you follow-up as instructed with your primary care provider or specialist for the additional evaluation and to discuss your medical treatment plan. You may return to the emergency department should you have concerns or if your condition changes or worsens in any way. Coding Level of Care Code ED Nutrition Helper for Olivia Fwd Related Data Previous Rx's Medication Instructions Recorded fluticasone propionate 50 2 spray intranasal DAILY allergy 10/06/23 mcg/actuation nasal symptoms #16 grams spray,suspension (Flonase Allergy Relief) gabapentin 300 mg capsule See Rx Instructions .Route 10/06/23 .COMPLEX #60 caps loratadine 10 mg tablet 10 mg PO DAILY PRN allergy 10/06/23 symptoms #90 tabs methocarbamol 750 mg tablet 750 mg PO Q8H PRN muscle 11/01/23 spasticity #30 tabs ibuprofen 200 mg tablet 200 mg PO Q6H PRN pain #90 tabs 11/29/23 Allergies Allergy/AdvReac Type Severity Reaction Status Date / Time No Known Allergies Allergy Verified 12/23/23 15:53
[2023-12-23 17:08] LABS: Bilirubin Urine Negative (Negative); Blood Urine Negative (Negative); Glucose Urine UA Negative (Normal); Ketones Urine Negative (Negative); Leukocyte Esterase Urine Negative (Negative); Nitrate Urine Negative (Negative); Protein Urine Negative (Negative); Specific Gravity, Urine 1.017 (1.005-1.030); Urine Appearance Clear (CLEAR); Urine Color Yellow (Yellow); pH Urine 6.5 (5-7)
[2023-12-23 17:10] LABS: Basophils % 0.3 %; Eosinophils # 0.1 10^3/uL (0.0-0.8); Eosinophils % 0.9 %; Hematocrit 47.2 % (36-47); Lymphocytes # 4.8 10^3/uL (0.8-4.8); Lymphocytes % 31.2 %; Mean Corpuscular HGB Conc 33.3 g/dL (30-55); Mean Corpuscular Hemoglobin 31.3 pg (27-33); Mean Corpuscular Volume 94.2 fl (85-98); Mean Platelet Volume 11.7 fL (7.4-10.4); Monocytes % 6.8 %; Neutrophils # 9.22 10^3/uL (1.8-7.7); Neutrophils % 60.5 %; Nucleated Red Blood Cells % 0 %; Platelet Count 246 10^3/cmm (157-399); Red Blood Count 5.01 10^6/uL (3.85-5.65); Red Cell Distribution Width 12.6 % (12.1-15.1); White Blood Count 15.24 10^3/uL (3.29-11.43)
[2023-12-23 17:15] LABS: Bacteria Urine None Seen /hpf; Squamous Epithelial Cell Urine 0-5 /hpf (0-5); WBC Urine 0-5 /hpf (0-5)
[2023-12-23 17:20] LABS: Alanine Aminotransferase 26 U/L (0-33); Albumin Level 4.5 g/dL (3.5-5.2); Alkaline Phosphatase 103 U/L (35-105); Anion Gap 15.2 (5-19); Aspartate Amino Transferase 25 U/L (0-32); Blood Urea Nitrogen 17 mg/dL (6-20); Calcium 9.5 mg/dL (8.5-10.5); Carbon Dioxide 26 mmol/L (22-29); Chloride 103 mmol/L (98-107); Creatinine Clr Calc Pharmacy 91.2519; Globulin 2.8 g/dL (1.3-4.6); Glomerular Filtration Rate 88.2 mL/min (90-130); Glucose 93 mg/dL (65-115); Osmolality Calculated 291 mOsm/kg (285-295); Potassium 4.2 mmol/L (3.5-5.1); Sodium 140 mmol/L (136-145); Total Bilirubin 0.4 mg/dL (0.15-1.2); Total Protein 7.3 g/dL (6.6-8.7)
[2023-12-23] MEDS: sodium chloride 0.9% 1,000 ML 999 ML IV (17:28)
[2023-12-23 17:30] VITALS: BP 134/76; PULSE 70; RESP 12; O2SAT 94
[2023-12-23 18:00] VITALS: BP 142/71; PULSE 69; RESP 19; O2SAT 96
[2023-12-23 18:16] LABS: Slide Review Slide Review Perform
[2023-12-23 18:30] VITALS: BP 115/64; PULSE 74; RESP 21; O2SAT 97
[2023-12-23 19:23] LABS: Adenovirus Not Detected (NOT DETECT); Chlamydia Pneumoniae Not Detected (NOT DETECT); Coronavirus 229E,HKU1,NL63,OC4 Not Detected (NOT DETECT); Human Metapneumovirus Not Detected (NOT DETECT); Human Rhinovirus/Enterovirus Not Detected (NOT DETECT); Influenza A Not Detected (NOT DETECT); Influenza A H1 Not Detected (NOT DETECT); Influenza A H1-2009 Not Detected (NOT DETECT); Influenza A H3 Not Detected (NOT DETECT); Influenza B Not Detected (NOT DETECT); Mycoplasma Pneumoniae Not Detected (NOT DETECT); Parainfluenza Virus Type 1 Not Detected (NOT DETECT); Parainfluenza Virus Type 2 Not Detected (NOT DETECT); Parainfluenza Virus Type 3 Not Detected (NOT DETECT); Parainfluenza Virus Type 4 Not Detected (NOT DETECT); Respiratory Syncytial Virus A Not Detected (NOT DETECT); Respiratory Syncytial Virus B Not Detected (NOT DETECT); SARS-COV-2 Not Detected (NOT DETECT)
[2023-12-23 21:13] VITALS: BP 127/52; PULSE 78; O2SAT 97
== END 2023-12-23 21:15 | disposition home or self-care (01) ==
PROVIDERS: Emergency Provider Family Medicine; PCP Family Medicine Adult Medicine
DX: R42 Dizziness and giddiness (principal); R11.2 Nausea with vomiting, unspecified; R53.83 Other fatigue; Z11.52 Encounter for screening for COVID-19; E78.5 Hyperlipidemia, unspecified; I10 Essential (primary) hypertension
CPT/HCPCS: 36415; 71045; 80053; 81003; 81015; 85025; 87635; 93005; 99285; J7030

== ENCOUNTER 2024-01-06 12:22 | Outpatient (CLI) | payer MEDICAID, SELFPAY | END 2024-01-06 12:23 | disposition home or self-care (01) | LOC: LAB 12:23 | PROVIDERS: PCP Family Medicine Adult Medicine; Visit Provider Family Medicine | DX: A49.9 Bacterial infection, unspecified (principal) | CPT/HCPCS: 87040 ==

== ENCOUNTER → 2024-01-17 11:35 | Outpatient (BNVA) | payer MEDICAID, SELFPAY | PROVIDERS: PCP Family Medicine Adult Medicine; Visit Provider Family Medicine | DX: Z01.818 Encounter for other preprocedural examination (principal) | CPT/HCPCS: 80053; 81003; 85025 ==

== ENCOUNTER → 2024-01-23 09:34 | Outpatient (BNVA) | payer MEDICAID, SELFPAY | PROVIDERS: PCP Family Medicine Adult Medicine; Visit Provider Family Medicine | DX: I10 Essential (primary) hypertension (principal); D72.829 Elevated white blood cell count, unspecified; M25.50 Pain in unspecified joint; R00.0 Tachycardia, unspecified; R53.83 Other fatigue | CPT/HCPCS: 82607; 82746; 83615; 83735; 84439; 84481; 85007; 85027; 86140; 86160; 86162; 86235; 86255; 86376; 86431; 87086 ==

== ENCOUNTER 2024-02-02 08:05 | Oncology outpatient (recurring) (ONCR) | payer MEDICAID, SELFPAY ==
[2024-02-02 08:58] LABS: Basophils % 0.3 %; Eosinophils # 0.1 10^3/uL (0.0-0.8); Eosinophils % 0.8 %; Lymphocytes # 5.3 10^3/uL (0.8-4.8); Mean Corpuscular HGB Conc 32.8 g/dL (30-55); Mean Corpuscular Hemoglobin 31.4 pg (27-33); Mean Corpuscular Volume 95.6 fl (85-98); Mean Platelet Volume 11.6 fL (7.4-10.4); Monocytes % 6.6 %; Neutrophils # 8.54 10^3/uL (1.8-7.7); Neutrophils % 56.8 %; Nucleated Red Blood Cells % 0 %; Platelet Count 259 10^3/cmm (157-399); Red Blood Count 4.81 10^6/uL (3.85-5.65); Red Cell Distribution Width 13.3 % (12.1-15.1); White Blood Count 15.02 10^3/uL (3.29-11.43)
[2024-02-02 09:14] LABS: Alanine Aminotransferase 18 U/L (0-33); Albumin Level 4.2 g/dL (3.5-5.2); Alkaline Phosphatase 117 U/L (35-105); Anion Gap 15.8 (5-19); Aspartate Amino Transferase 17 U/L (0-32); Blood Urea Nitrogen 11 mg/dL (6-20); Calcium 8.9 mg/dL (8.5-10.5); Carbon Dioxide 26 mmol/L (22-29); Chloride 102 mmol/L (98-107); Creatinine Clr Calc Pharmacy 93.1582; Globulin 2.7 g/dL (1.3-4.6); Glomerular Filtration Rate 88.2 mL/min (90-130); Glucose 82 mg/dL (65-115); Lactate Dehydrogenase 287 U/L (135-214); Osmolality Calculated 288 mOsm/kg (285-295); Potassium 3.8 mmol/L (3.5-5.1); Sodium 140 mmol/L (136-145); Total Bilirubin 0.3 mg/dL (0.15-1.2); Total Protein 6.9 g/dL (6.6-8.7)
[2024-02-03 12:55] LABS: Leukemia Profile (BBPL) See Report
[2024-02-08 12:15] LABS: Soluble Transferrin Receptor 1.42 mg/L (0.76-1.76)
== END 2024-03-01 23:59 | disposition home or self-care (01) ==
PROVIDERS: PCP Family Medicine Adult Medicine; Visit Provider Internal Medicine Hematology & Oncology
DX: R79.82 Elevated C-reactive protein (CRP) (principal); D72.829 Elevated white blood cell count, unspecified; Z53.9 Procedure and treatment not carried out, unspecified reason
CPT/HCPCS: 36415; 80053; 83615; 84238; 85025; 86140; 88184; 88185

== ENCOUNTER 2024-02-17 08:43 | Outpatient (CLI) | payer MEDICAID, SELFPAY ==
--- NOTE | 2024-02-17 08:45 | CTR_ITS ---
PROCEDURE INFORMATION: Exam: CT Chest Without and With Contrast; Diagnostic Exam date and time: 02/17/2024 9:44 AM Age: 53 years old Clinical indication: Abnormal findings; Abnormal lab test; Elevated wbc; Abnormal diagnostic tests; Abnormal ekg; Prior surgery; Surgery date: 6+ months; Surgery type: Hyst; Additional info: Persistent elevated wbc count; Blood cx neg; R/O malignancy TECHNIQUE: Imaging protocol: Diagnostic computed tomography of the chest without and with contrast. Radiation optimization: All CT scans at this facility use at least one of these dose optimization techniques: automated exposure control; mA and/or kV adjustment per patient size (includes targeted exams where dose is matched to clinical indication); or iterative reconstruction. Contrast material: OMNI 350; Contrast volume: 100 ml; Contrast route: INTRAVENOUS (IV); COMPARISON: CR XR chest 1V portable [id number] 12/23/2023 4:43 PM RADIATION DOSE METRICS: Total DLP (mGy-cm): 1622.53 FINDINGS: Thyroid: Left thyroid nodule x 0.8 cm of which no dedicated follow-up ultrasound is necessary. Lungs: Unremarkable. No consolidation. No masses. Pleural spaces: Unremarkable. No pneumothorax. No pleural effusion. Heart: Unremarkable. No cardiomegaly. No pericardial effusion. Coronary arteries: No visible coronary calcification. Lymph nodes: Several prominent mediastinal lymph nodes, measuring up to 1.0 cm in short axis (series 6, image 22). Vasculature: Unremarkable. No aortic aneurysm. Bones/joints: No acute fracture. Soft tissues: Right anterior chest subcutaneous soft tissue lesion measuring 1.1 cm (series 6, image 19). PROCEDURE INFORMATION: Exam: CT Abdomen And Pelvis Without And With Contrast Exam date and time: 02/17/2024 9:44 AM Age: 53 years old Clinical indication: Abnormal findings; Abnormal lab test; Elevated wbc; Abnormal diagnostic tests; Abnormal ekg; Prior surgery; Surgery date: 6+ months; Surgery type: Hyst; Additional info: Persistent elevated wbc count; Blood cx neg; R/O malignancy TECHNIQUE: Imaging protocol: Computed tomography of the abdomen and pelvis without and with contrast. Radiation optimization: All CT scans at this facility use at least one of these dose optimization techniques: automated exposure control; mA and/or kV adjustment per patient size (includes targeted exams where dose is matched to clinical indication); or iterative reconstruction. Contrast material: OMNI 350; Contrast volume: 100 ml; Contrast route: INTRAVENOUS (IV); COMPARISON: CR XR hip RT 2-3V wo/w pel* [id number] 11/02/2023 1:39 PM RADIATION DOSE METRICS: Total DLP (mGy-cm): 1622.53 FINDINGS: Liver: Enlarged liver with diffuse fatty infiltration. Gallbladder and biliary ducts: Unremarkable. No calcified stones. No ductal dilation. Pancreas: Unremarkable. No ductal dilation. Spleen: Unremarkable. No mass. Adrenal glands: Enhancing left adrenal lesion x 2.0 cm. Kidneys and ureters: Unremarkable. No stone or hydronephrosis. Stomach and bowel: Interposition of a loop of colon between the right hemidiaphragm and liver. No obstruction. No significant mucosal thickening. Appendix: No evidence of appendicitis. Intraperitoneal space: No free air. No significant fluid collection. Vasculature: No abdominal aortic aneurysm. Lymph nodes: Scattered prominent lymph nodes, notably in the portacaval and right lower quadrant measuring upwards of 1.1 cm. Urinary bladder: Unremarkable as visualized. Reproductive: Unremarkable as visualized. Bones/joints: Severe right hip degenerative joint disease. Soft tissues: No bowel containing hernia. CT/CT [facility] wo/w [id number] IMPRESSION: 1. Mediastinal adenopathy, nonspecific. 2. Left thyroid nodule x 0.8 cm of which no dedicated follow-up ultrasound is necessary based on size. 3. Subcutaneous soft tissue lesion at the right anterior chest wall which may be a sebaceous cyst. Consider visual inspection. IMPRESSION: 1. Indeterminate enhancing left adrenal lesion x 2.0 cm; malignancy including metastasis not excluded. 2. Portacaval and right lower quadrant adenopathy, nonspecific. 3. Enlarged fatty liver.
[2024-02-17] MEDS: iohexol 350 mg/mL 500 mL Btl (per mL) IV (09:58)
[2024-02-17] MEDS: iohexol 350 mg/mL 500 mL Btl (per mL) PO (09:59)
== END 2024-02-17 08:44 | disposition home or self-care (01) ==
LOC: RAD 08:44
PROVIDERS: PCP Family Medicine Adult Medicine; Visit Provider Family Medicine
DX: D72.829 Elevated white blood cell count, unspecified (principal); R74.02 Elevation of levels of lactic acid dehydrogenase [LDH]; R79.82 Elevated C-reactive protein (CRP); E04.1 Nontoxic single thyroid nodule; K76.0 Fatty (change of) liver, not elsewhere classified; D35.02 Benign neoplasm of left adrenal gland; R93.3 Abnormal findings on diagnostic imaging of other parts of digestive tract
CPT/HCPCS: 71260; 74178

== ENCOUNTER → 2024-03-11 13:11 | Outpatient (BNVA) | payer MEDICAID, SELFPAY | PROVIDERS: PCP Family Medicine Adult Medicine; Visit Provider Emergency Medicine | DX: S82.142A Displaced bicondylar fracture of left tibia, initial encounter for closed fracture (principal); M25.462 Effusion, left knee; M17.12 Unilateral primary osteoarthritis, left knee; M25.562 Pain in left knee | CPT/HCPCS: 73562 ==

== ENCOUNTER 2024-03-16 06:35 | Oncology outpatient (recurring) (ONCR) | payer MEDICAID, SELFPAY ==
--- NOTE | 2024-03-16 07:00 | CT_ITS ---
WS: [id number] CT LEFT KNEE, NONCONTRAST HISTORY: fracture Technique: All CT scans at [facility] use at least one of these dose optimization techniques: automated exposure control; mA and/or kV adjustment per patient size (includes targeted exams where dose is matched to clinical indication); or iterative reconstruction. DLP: 510.67 mGy.cm COMPARISON: Radiograph 03/11/2024 Comminuted lateral tibial plateau fracture depressed by approximately 5 mm. No involvement of the tib ial spines or medial tibial plateau. Femoral condyles are intact. Fracture predominantly involves the posterior surface of the tibial plateau. No loose bodies extending into the joint. Patella remains in normal position. There is a moderate size joint effusion. CT/CT knee LT wo con* [id number] IMPRESSION: 1. Posterolateral mildly depressed tibial plateau fracture. Fracture is commin uted and depressed by 5 mm. 2. Moderate joint effusion.
== END 2024-03-31 23:59 | disposition home or self-care (01) ==
LOC: RAD 06:36 → ONCMED 08:17
PROVIDERS: PCP Family Medicine Adult Medicine; Visit Provider Specialist
DX: R79.82 Elevated C-reactive protein (CRP) (principal); D72.829 Elevated white blood cell count, unspecified; Z53.9 Procedure and treatment not carried out, unspecified reason; S82.142A Displaced bicondylar fracture of left tibia, initial encounter for closed fracture
CPT/HCPCS: 73700

== ENCOUNTER 2024-03-20 08:14 | Outpatient (CLI) | payer MEDICAID, SELFPAY ==
[2024-03-20 08:46] LABS: Bilirubin Urine Negative (Negative); Blood Urine Negative (Negative); Glucose Urine UA Negative (Normal); Ketones Urine Trace (Negative); Leukocyte Esterase Urine Trace (Negative); Nitrate Urine Negative (Negative); Protein Urine Negative (Negative); Specific Gravity, Urine 1.026 (1.005-1.030); Urine Appearance Clear (CLEAR); Urine Color Dark Yellow (Yellow); pH Urine 5.5 (5-7)
[2024-03-20 08:47] LABS: Basophils % 0.2 %; Eosinophils # 0.1 10^3/uL (0.0-0.8); Eosinophils % 0.5 %; Lymphocytes # 4.9 10^3/uL (0.8-4.8); Lymphocytes % 25.2 %; Mean Corpuscular HGB Conc 32.3 g/dL (30-55); Mean Corpuscular Hemoglobin 30.8 pg (27-33); Mean Corpuscular Volume 95.2 fl (85-98); Mean Platelet Volume 11.6 fL (7.4-10.4); Monocytes # 1.3 10^3/uL (0.2-0.9); Monocytes % 6.9 %; Neutrophils # 12.98 10^3/uL (1.8-7.7); Neutrophils % 66.7 %; Nucleated Red Blood Cells % 0 %; Platelet Count 311 10^3/cmm (157-399); Red Blood Count 5.04 10^6/uL (3.85-5.65); Red Cell Distribution Width 13.1 % (12.1-15.1); White Blood Count 19.47 10^3/uL (3.29-11.43)
[2024-03-20 08:51] LABS: Add Urine Microscopic? YES; Bacteria Urine Trace /hpf; Hyaline Casts Urine 2.46 /lpf; RBC Urine 0-2 /hpf (0-2); Squamous Epithelial Cell Urine 0-5 /hpf (0-5); WBC Urine 0-5 /hpf (0-5)
[2024-03-20 09:07] LABS: Alanine Aminotransferase 16 U/L (0-33); Albumin Level 4.3 g/dL (3.5-5.2); Alkaline Phosphatase 112 U/L (35-105); Anion Gap 16.1 (5-19); Aspartate Amino Transferase 17 U/L (0-32); Blood Urea Nitrogen 17 mg/dL (6-20); Calcium 9.8 mg/dL (8.5-10.5); Carbon Dioxide 26 mmol/L (22-29); Chloride 102 mmol/L (98-107); Globulin 3.4 g/dL (1.3-4.6); Glomerular Filtration Rate 75.3 mL/min (90-130); Glucose 82 mg/dL (65-115); Osmolality Calculated 291 mOsm/kg (285-295); Potassium 4.1 mmol/L (3.5-5.1); Sodium 140 mmol/L (136-145); Total Bilirubin 0.4 mg/dL (0.15-1.2); Total Protein 7.7 g/dL (6.6-8.7)
== END 2024-03-20 08:15 | disposition home or self-care (01) ==
LOC: LAB 08:14
PROVIDERS: PCP Family Medicine Adult Medicine; Visit Provider Specialist
DX: S82.142A Displaced bicondylar fracture of left tibia, initial encounter for closed fracture (principal); X58.XXXA Exposure to other specified factors, initial encounter; M94.262 Chondromalacia, left knee
CPT/HCPCS: 36415; 80053; 81001; 85025

== ENCOUNTER → 2024-03-21 08:29 | Outpatient (BNVA) | payer MEDICAID, SELFPAY | PROVIDERS: PCP Family Medicine Adult Medicine; Visit Provider Specialist | DX: S82.122A Displaced fracture of lateral condyle of left tibia, initial encounter for closed fracture (principal); X58.XXXA Exposure to other specified factors, initial encounter | CPT/HCPCS: 73562 ==

== ENCOUNTER → 2024-04-05 08:55 | Outpatient (BNVA) | payer MEDICAID, SELFPAY | PROVIDERS: PCP Family Medicine Adult Medicine; Visit Provider Specialist | DX: S82.122D Displaced fracture of lateral condyle of left tibia, subsequent encounter for closed fracture with routine healing (principal); X58.XXXD Exposure to other specified factors, subsequent encounter | CPT/HCPCS: 73562 ==

== ENCOUNTER 2024-04-06 07:33 | Oncology outpatient (recurring) (ONCR) | payer MEDICAID, SELFPAY ==
[2024-04-06 08:10] LABS: Basophils % 0.2 %; Eosinophils # 0.1 10^3/uL (0.0-0.8); Eosinophils % 1.2 %; Hematocrit 47.8 % (36-47); Lymphocytes # 3.9 10^3/uL (0.8-4.8); Lymphocytes % 36.2 %; Mean Corpuscular HGB Conc 32.2 g/dL (30-55); Mean Corpuscular Volume 96.2 fl (85-98); Mean Platelet Volume 11.8 fL (7.4-10.4); Monocytes # 0.7 10^3/uL (0.2-0.9); Monocytes % 6.9 %; Neutrophils # 5.87 10^3/uL (1.8-7.7); Neutrophils % 55.1 %; Nucleated Red Blood Cells % 0 %; Platelet Count 250 10^3/cmm (157-399); Red Blood Count 4.97 10^6/uL (3.85-5.65); White Blood Count 10.64 10^3/uL (3.29-11.43)
[2024-04-06 08:15] LABS: Erythrocyte Sedimentation Rate 8 mm/hr (0-15)
[2024-04-06 08:16] LABS: Alanine Aminotransferase 24 U/L (0-33); Albumin Level 4.3 g/dL (3.5-5.2); Alkaline Phosphatase 116 U/L (35-105); Anion Gap 15.3 (5-19); Aspartate Amino Transferase 25 U/L (0-32); Blood Urea Nitrogen 8 mg/dL (6-20); Calcium 9.5 mg/dL (8.5-10.5); Carbon Dioxide 26 mmol/L (22-29); Chloride 103 mmol/L (98-107); Globulin 2.7 g/dL (1.3-4.6); Glomerular Filtration Rate 87.9 mL/min (90-130); Glucose 120 mg/dL (65-115); Lactate Dehydrogenase 249 U/L (135-214); Osmolality Calculated 290 mOsm/kg (285-295); Potassium 4.3 mmol/L (3.5-5.1); Sodium 140 mmol/L (136-145); Total Bilirubin 0.3 mg/dL (0.15-1.2)
[2024-04-06 14:18] LABS: Ferritin 184 ng/mL (15-150); Iron 94 ug/dL (37-145); Percent Saturation 27.2 % (20-50); Total Iron Binding Capacity 345 mcg/dl; Unsaturated Iron Binding 251 ug/dL (112-347)
== END 2024-05-01 23:59 | disposition home or self-care (01) ==
PROVIDERS: Internal Medicine Hematology & Oncology; PCP Family Medicine Adult Medicine; Visit Provider Specialist
DX: D72.829 Elevated white blood cell count, unspecified
CPT/HCPCS: 36415; 80053; 82728; 83540; 83550; 83615; 85025; 85651

== ENCOUNTER → 2024-04-18 10:10 | Outpatient (BNVA) | payer MEDICAID, SELFPAY | PROVIDERS: Visit Provider Specialist | DX: S82.122D Displaced fracture of lateral condyle of left tibia, subsequent encounter for closed fracture with routine healing (principal); X58.XXXD Exposure to other specified factors, subsequent encounter | CPT/HCPCS: 73562 ==

== ENCOUNTER 2024-04-20 09:08 | Outpatient (CLI) | payer MEDICAID, SELFPAY ==
--- NOTE | 2024-04-20 09:20 | MM_ITS ---
WS: [id number] SCREENING DIGITAL BREAST TOMOSYNTHESIS MAMMOGRAM WITH CAD HISTORY: screening COMPARISON: None available. Bilateral CC and MLO with tomosynthesis and synthetic mammography submitted. Computer aided detection analyzed. Breast composition: The breasts are almost entirely fatty. High density mass in the posterior medial RIGHT breast measures 12 x 9 x 13 mm. Mass is well-circumscribed. No calcifications associated with t he mass. The remaining breasts are negative. MM/MM [facility] tomosynthesis [id number] IMPRESSION: BI-RADS: 0 - Incomplete: Need additional imaging evaluation. FOLLOW UP: Need Additional Imaging Recommendation: RIGHT breast ultrasound, limited Ultrasound directed to the posterior RIGHT breast at 3:00.
== END 2024-04-20 09:09 | disposition home or self-care (01) ==
DX: Z12.31 Encounter for screening mammogram for malignant neoplasm of breast (principal); R92.313 Mammographic fatty tissue density, bilateral breasts; N63.11 Unspecified lump in the right breast, upper outer quadrant
CPT/HCPCS: 77063; 77067

== ENCOUNTER → 2024-05-23 11:09 | Outpatient (BNVA) | payer MEDICAID, SELFPAY | PROVIDERS: Visit Provider Specialist | DX: S82.122D Displaced fracture of lateral condyle of left tibia, subsequent encounter for closed fracture with routine healing (principal); X58.XXXD Exposure to other specified factors, subsequent encounter | CPT/HCPCS: 73562 ==

== ENCOUNTER 2024-05-29 07:28 | Oncology outpatient (recurring) (ONCR) | payer MEDICAID, SELFPAY ==
--- NOTE | 2024-05-29 07:56 | CT_ITS ---
WS: [id number] CT adrenals with and without contrast. HISTORY: f/u on adrenal mass Noncontrast 2 mm imaging is performed through the abdomen with attention to the adrenal glands. Addit ional 1 minute and 15 minute delayed images are then performed through the adrenal glands. CONTRAST: Omnipaque 350; 95 mL IV. DLP: 1126.[address] scans at [facility] use at least one of these dose optimization techniques: automated e xposure control; mA and/or kV adjustment per patient size (includes targeted exams where dose is matc hed to clinical indication); or iterative reconstruction. COMPARISON: 02/17/2024 Lower thorax: Lung bases are clear. Normal size heart. Liver: Mild hepatomegaly. No mass. No intrahepatic duct dilatation. Normal portal vein. Gallbladder: Normal. Pancreas: Normal. Spleen: Normal. ADRENAL GLANDS. RIGHT: Normal. No mass or enlargement. LEFT: Well-circumscribed low-attenuation LEFT adrenal mass measures 1.4 x 2.0 cm. Hounsfield units ar e low on the noncontrast study indicating a benign adenoma. Absolute washout value of 77% consistent with an adenoma also. Right kidney: Normal. Left kidney: Normal. Aorta: Mild atherosclerosis. Retroaortic LEFT renal vein. GI tract: As visualized normal. No adenopathy or free fluid. Abdominal wall: No hernia. Visualized osseous structures: Unremarkable. CT/CT abdomen wo/w con [id number] IMPRESSION: 1. Benign LEFT adrenal adenoma measuring 1.4 x 2.0 cm. 2. Mild hepatomegaly. 3. Mild atherosclerosis abdominal aorta.
[2024-05-29] MEDS: iohexol 350 mg/mL 500 mL Btl (per mL) IV (08:00)
== END 2024-06-01 23:59 | disposition home or self-care (01) ==
LOC: RAD 12:32 → ONCMED 05-31 09:26
PROVIDERS: Visit Provider Specialist
DX: D72.829 Elevated white blood cell count, unspecified (principal); R92.8 Other abnormal and inconclusive findings on diagnostic imaging of breast; E27.8 Other specified disorders of adrenal gland
CPT/HCPCS: 74170

== ENCOUNTER → 2024-06-13 10:55 | Outpatient (BNVA) | payer MEDICAID, SELFPAY | PROVIDERS: Visit Provider Specialist | DX: S82.122D Displaced fracture of lateral condyle of left tibia, subsequent encounter for closed fracture with routine healing (principal); X58.XXXD Exposure to other specified factors, subsequent encounter | CPT/HCPCS: 73560; 73565 ==

== ENCOUNTER 2024-06-25 07:29 | Oncology outpatient (recurring) (ONCR) | payer MEDICAID, SELFPAY ==
[2024-06-25 07:47] LABS: Basophils % 0.2 %; Eosinophils # 0.1 10^3/uL (0.0-0.8); Eosinophils % 0.6 %; Hematocrit 47.1 % (36-47); Lymphocytes % 30.8 %; Mean Corpuscular HGB Conc 32.3 g/dL (30-55); Mean Corpuscular Hemoglobin 30.3 pg (27-33); Mean Platelet Volume 11.7 fL (7.4-10.4); Monocytes # 0.6 10^3/uL (0.2-0.9); Monocytes % 6.4 %; Neutrophils # 6.02 10^3/uL (1.8-7.7); Neutrophils % 61.8 %; Nucleated Red Blood Cells % 0 %; Platelet Count 231 10^3/cmm (157-399); Red Blood Count 5.01 10^6/uL (3.85-5.65); Red Cell Distribution Width 12.8 % (12.1-15.1); White Blood Count 9.74 10^3/uL (3.29-11.43)
[2024-06-25 08:09] LABS: Alanine Aminotransferase 19 U/L (0-33); Albumin Level 4.3 g/dL (3.5-5.2); Alkaline Phosphatase 126 U/L (35-105); Anion Gap 14.6 (5-19); Aspartate Amino Transferase 19 U/L (0-32); Blood Urea Nitrogen 9 mg/dL (6-20); Calcium 9.2 mg/dL (8.5-10.5); Carbon Dioxide 25 mmol/L (22-29); Chloride 109 mmol/L (98-107); Creatinine Clr Calc Pharmacy 107.4634; Globulin 2.6 g/dL (1.3-4.6); Glucose 89 mg/dL (65-115); Lactate Dehydrogenase 253 U/L (135-214); Osmolality Calculated 296 mOsm/kg (285-295); Potassium 4.6 mmol/L (3.5-5.1); Sodium 144 mmol/L (136-145); Total Bilirubin 0.3 mg/dL (0.15-1.2); Total Protein 6.9 g/dL (6.6-8.7)
[2024-06-25 12:25] LABS: Add Urine Microscopic? NO
[2024-06-25 12:43] LABS: Bilirubin Urine Negative (Negative); Blood Urine Negative (Negative); Glucose Urine UA Negative (Normal); Ketones Urine Negative (Negative); Leukocyte Esterase Urine Negative (Negative); Nitrate Urine Negative (Negative); Protein Urine Negative (Negative); Specific Gravity, Urine 1.016 (1.005-1.030); Urine Appearance Clear (CLEAR); Urine Color Yellow (Yellow); Urobilinogen Urine 0.2 mg/dL (Negative)
[2024-06-25 13:07] LABS: Add Urine Culture? No; Charge for UA Resulting for Rev
== END 2024-06-29 23:59 | disposition home or self-care (01) ==
PROVIDERS: Nurse Practitioner Family; Visit Provider Specialist
DX: D72.829 Elevated white blood cell count, unspecified (principal); M16.11 Unilateral primary osteoarthritis, right hip
CPT/HCPCS: 36415; 73502; 80053; 81003; 83615; 85025

== ENCOUNTER → 2024-08-03 10:56 | Outpatient (BNVA) | payer MEDICAID, SELFPAY | PROVIDERS: Visit Provider Family Medicine | DX: Z01.818 Encounter for other preprocedural examination (principal) | CPT/HCPCS: 80053; 81003; 85007; 85027 ==

== ENCOUNTER 2024-08-14 15:58 | Observation (INO) | payer MEDICAID, SELFPAY ==
[2024-08-14] VITALS (17 sets, daily range): BP systolic 96–137; BP diastolic 60–105; PULSE 68–92; RESP 15–17; TEMP 36.2–36.8; O2SAT 88–99; BMI 34.0; BMI 37.5
[2024-08-14] MEDS: sodium chloride 0.9% 1,000 ML 30 ML IV (12:57)
--- NOTE | 2024-08-14 13:07 | P.HPUD_ITS ---
Surgery/Procedure H&P Update DATE OF PROCEDURE: August 14, 2024 DATE H&P PERFORMED: 08/03/24 H&P UPDATE INFORMATION: I have reviewed H&P completed within last 30 days, I have examined patient prior to procedure, No changes to prior documentation, H&P is in [facility] EMR on date indicated and Risks and benefits of the procedure reviewed PREOP DIAGNOSIS: Primary osteoarthritis right hip PLANNED PROCEDURE: Operation Date: 08/14/24 13:50 Proposed Procedures p Total Hip Arthroplasty(Right) - Simran Hankins MD Related Problem List Diagnoses (1) Osteoarthritis of right hip: Qualifiers: Osteoarthritis type: primary Qualified Code(s): M16.11 - Unilateral primary osteoarthritis, right hip
[2024-08-14] MEDS: acetaminophen 1,000 MG/100 ML PIGGYBACK 400 MG IV ×2 (13:08→20:18)
[2024-08-14] MEDS: CELEcoxib 200 mg Capsule 400 MG PO (13:13)
--- NOTE | 2024-08-14 13:38 | P.ANESASSM_ITS ---
Pre-Anesthetic Assessment Height/Weight: Height 1.55 m Weight 81.647 kg Temp Pulse Resp BP Pulse Ox O2 Del Method 97.2 F L 82 17 137/105 97 Room Air 08/14/24 12:22 08/14/24 12:22 08/14/24 12:22 08/14/24 12:22 08/14/24 12:22 08/14/24 12:22 Preop Diagnosis: Primary osteoarthritis right hip Operation Date: 08/14/24 13:50 Proposed Procedures p Total Hip Arthroplasty(Right) - Simran Hankins MD Last intake: Intake Last Liquid Date 08/13/24 Last Liquid Time 22:40 Last Solid Date 08/13/24 Last Solid Time 03:30 Social Tobacco and No alcohol Exam alert, oriented x 3, clear to auscultation bilaterally and regular rate & rhythm Airway Submandibular: within normal limits Cervical ROM: within normal limits Mallampati: Class II Pulmonary Chronic Obstructive Pulmonary Disease CV/HEM Arrythmia and Hypertension Metabolic Hyperlipidemia and Morbid Obesity Anesthetic Plan ASA status: 3 Anesthesia: General Other: declined SAB Medications/Allergies Home Medications ?Medication ?Instructions ?Recorded ?Confirmed ?Last Taken ?Type multivitamin 1 tab PO DAILY 01/17/2407/3108/13/24 History walker #1 ea 03/12/24 07/28/24 Unkn own Rx Lateral School Librarian Brace #1 ea 03/21/24 07/28/24 Unkn own Rx lisinopril 10 mg tablet 10 mg PO DAILY #30 tabs 04/0108/13/24 08/13/24 Rx exenatide 5 mcg/dose (250 5 mcg (0.02 mL) SUBCUT BID # 1.2 mL 06/13/24 08/14/24 06/29/24 Rx mcg/mL)1.2 mL subcutaneous pen injector ibuprofen 600 mg tablet 600 mg PO Q8H PRN pain #30 t abs 07/28/24 08/13/2404/25 Rx fluticasone propionate 50 2 spray intranasal DAILY PRN 08/13/24 08/13/24 Unknown History mcg/actuation nasal allergy symptoms spray,suspension (Flonase Allergy Relief) gabapentin 300 mg capsule 300 mg PO BID 08/14/2408/1408/14/24 04:30 History Allergies Allergy/AdvReac Type Severity Reaction Status Date / Time No Known Allergies Allergy Verified 08/14/24 12:22 Current Medications Generic Name Dose Route Start Last Admin Trade Name Lauren PRN Reason Stop Dose Admin Sodium Chloride 1,000 mls @ 30 mls/hr 08/14/24 12:15 08/14/24 12:57 Sodium Chloride 0.9% IV 08/15/24 12:14 30 mls/hr .Q24H KRISTY Administration PFSH Anesthesia Medical History Skin tag Abnormal mammogram of right breast Screening for breast cancer 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; on CT 02/22; to repeat 3 months Elevated serum lactate dehydrogenase (LDH) Nicotine dependence, cigarettes, uncomplicated Elevated white blood cell count, unspecified Tachycardia Arthralgia Elevated blood pressure reading in office with white coat syndrome, without diagnosis of hypertension Chronic back pain greater than 3 months duration Osteoarthritis of right hip Dyslipidemia (high LDL; low HDL) Joint pain in both hands Obesity (BMI 35.0-39.9 without comorbidity) Hypertension Carpal tunnel syndrome of right wrist Symptomatic postsurgical menopause Surgical History Hx of hysterectomy Total Hyst w/ BSO; done for cysts; in her 30s; no hx of cancer Family History Mother Cancer LEUKEMIA, Brain aneurysm Father CAD (coronary artery disease) Scleroderma Social History Smoking and tobacco/nicotine status: current every day tobacco/nicotine user cigarettes Packs smoked per day: 1 Alcohol intake: former 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 Substance/Drug Use: never Household members: spouse and children Marital status: Number of children: 4 Highest education level completed: 10th Grade Current occupational status: unemployed 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
[2024-08-14] MEDS: ceFAZolin 2,000 mg SDV 2000 MG IVP ×2 (13:50→20:22)
[2024-08-14] MEDS: tranexamic acid 1,000 mg/10mL SDV 1000 MG IV (14:19)
[2024-08-14] MEDS: ceFAZolin 1,000 mg SDV 1000 MG IRRIGATION (14:49)
[2024-08-14] MEDS: BUPivacaine 0.5% INJ 10 mL 20 ML INJECTION (14:50)
[2024-08-14] MEDS: BUPivacaine liposome 13.3 mg/mL SDV 20 mL 266 MG INJECTION (14:50)
[2024-08-14] MEDS: VANCOMYCIN ADD-Vantage 1,000 MG VIAL 1000 MG XX (14:53)
--- NOTE | 2024-08-14 16:34 | XRR_ITS ---
PROCEDURE INFORMATION: Exam: XR Pelvis Exam date and time: 08/14/2024 4:32 PM Age: 54 years old Clinical indication: Device placement; Prior surgery; Surgery date: Post-operative (0-2 days); Surgery type: Post op RT hip; Additional info: S/P kirsten, low ap pelvis TECHNIQUE: Imaging protocol: Radiologic exam of the pelvis. Views: 1 or 2 view. COMPARISON: CR XR hip RT 2-3V wo/w pel* [id number] 06/25/2024 10:47 AM FINDINGS: Bones/joints: A right hip prosthesis is well seated and well aligned. Soft tissues: Soft tissue air is noted. XR/XR pelvis 1-2V* [id number] IMPRESSION: Intact postoperative hip prosthesis
--- NOTE | 2024-08-14 16:42 | PM.OP ---
Operative Report Date of procedure: August 14, 2024 Pre-op diagnosis: Severe degenerative osteoarthritis right hip with femoral head collapse Post-op diagnosis: Severe degenerative osteoarthritis right hip with femoral head collapse and large acetabular osteophytes Post-op findings: Large osteophytes circumferentially about the acetabulum Procedure done: Right total hip arthroplasty Implants: The Ann total hip system with the following implants: A 52 mm Trident II solid back acetabular shell with an E Alpha code, an MDM cementless liner 42 mm inner diameter by E alpha code and Accolade II size 5 with 127 degree neck angle hip stem with a 28 mm outer diameter +0 mm neck offset and a presybeterian X3 insert size 28 mm inner diameter by 42E Specimens removed/disposition: Bone, disposed of Pathology: None Surgeon: Simran Hankins MD Recruiting Manager: Nicolasa Durán, nurse practitioner, who services were required for positioning, exposure, retraction, and closure. Anesthesia: General (Intubated, ASA 3) Estimated blood loss (mL): 170 IV fluids (mL): 1,600 Urine output (mL): 300 Complications: None Findings: Large osteophytes circumferentially about the acetabulum requiring removal with osteophytes. Severe degenerative osteoarthritis with complete denudement and partial collapse of the femoral head. The hip was stable at 90 degrees of flexion with 80 degrees of internal rotation and 20 degrees of adduction. Leg lengths were felt to be restored. Condition: stable Disposition: PACU (Then admit under observation status to the floor for postoperative rehabilitation and pain management) Brief History: This 54-year-old woman presents today for a right total hip arthroplasty. Patient has severe limitations in range of motion and and activities of daily living. Patient notes that the pain impacted her sleeping and limited her walking. The patient did not use at the time of admission any assistive devices. Treatment options were discussed in the office with the patient, and plans were made to proceed with total hip arthroplasty. Risks and complications were discussed with her, and consents were signed. Patient was again seen on the day of surgery and further discussion was accomplished once again. Procedure: Patient was brought to the operating theater.? She was transferred to the operating room table.? The patient had a general anesthetic intubated, ASA 3 uneventfully.? Following administration of adequate anesthesia, the patient was placed in full lateral position and held in position with a pegboard.? The patient's right lower extremity was then prepped and draped in usual fashion utilizing DuraPrep.? It was draped free.? Following prepping and draping, a surgical pause was performed. At the time of surgical pause, we identified the site and side of surgery.? We also identified the patient and preoperative surgical markings.? Confirmation was made of equipment availability.? Additionally, the patient's preoperative IV antibiotic, Ancef 2 g was confirmed as being given in a timely fashion and being the appropriate antibiotic.? She received TXA 1 g preoperatively as well 1 g postoperatively. Following the surgical pause, an incision was made centering over the patient's greater trochanter continuing proximally and distally as necessary to allow access to the hip joint.? Dissection continued through skin and soft tissues using a scalpel, and hemostasis was obtained using electrocautery. The tensor fascia erum was identified and incised longitudinally.? Sciatic nerve was identified and protected throughout the surgical procedure.? A Charnley U retractor was placed after the tensor fascia erum had been incised longitudinally, and the sciatic nerve had been identified.? The piriformis muscle was identified and tagged. Piriformis muscle along with the remaining short external rotators were then incised from the posterior aspect of the hip joint. These were retracted posteriorly. ? The capsule was entered in a T-type fashion with the edges being tagged.? There were large posterior osteophytes including 1 which had fractured intra osteophyte. These were removed with a combination of rongeur and osteotomes. The hip was then dislocated.? Following hip dislocation, a femoral neck osteotomy was accomplished in the appropriate position.? We then evaluated the acetabulum. Following femoral neck osteotomy, the femur was retracted anteriorly.? Soft tissues were retracted, and the calcified labrum and large osteophytes were removed.? Soft tissues were removed from within the acetabulum prior to the reaming process.? We then began reaming.? We deepened the acetabulum utilizing a smaller reamer.? Evaluation of the acetabulum was accomplished, and we were able to ream to 51 mm to allow for a size 52 mm acetabular shell. The acetabular component was impacted into position.? It was noted that the acetabular component matched the bony anatomy.? The MDM cementless liner was impacted into position, and care was taken to assure that it completely seated.? Attention was directed to the proximal femur.? The proximal femur was lifted out of the wound with difficulty.? A canal finder was passed, and we then used the reamer to lateralize.? We then began broaching. We broached sequentially and a size 5 gave excellent fit and fill.? With the size 5 broach, trial reduction was accomplished initially with a size +0 mm offset femoral head.? The patient was stable with this construct.? With this in place, we had the above stabilities, and at that time, we felt that we had restored normal leg lengths.? We also felt that we had excellent stability noted above. Therefore, trial components were removed after the hip was dislocated.? The size 5 Accolade II 127 degree neck angle hip stem was impacted into position without difficulty and onto this was placed a +0 mm offset by 28 mm outer diameter femoral head inside of the MDM size 42E insert with a 28 mm inner diameter.? With this construct, we had the above-noted stability.? The stem was noted to seat nicely prior to placement of the femoral head.? The wound was copiously irrigated with Betadine.? At this time, with all components in appropriate position, the hip was reduced.? Following reduction of the prosthesis once again, we confirmed the stability of the hip.? Leg lengths were also felt to be satisfactory. Being satisfied with the prosthesis, attention was directed to closure.? Exparel was injected in the soft tissue surrounding the hip. Closure was accomplished with 0 Vicryl in the capsular tissues.? Piriformis was reattached with 0 Vicryl as well.? Tensor fascia erum was closed with 0 Vicryl in an interrupted fashion.? The subcutaneous tissues were closed with 2-0 STRATAFIX.? Vancomycin powder and a Gelfoam thrombin mixture was placed into the wound as well.? The skin was closed with 3-0 STRATAFIX followed by Dermabond, Prineo, and OpSite.? The patient was placed in an abduction pillow.?The patient was then rolled onto his back. She was returned the Recovery Room in a satisfactory condition and will be discharged to the floor for postoperative rehabilitation and pain management.? There were no complications. Related Problem List Diagnoses (1) Osteoarthritis of right hip:
--- NOTE | 2024-08-14 16:46 | ANE.PACU2 ---
Inpatient post-anesthesia follow up: Airway intact: Yes Vital signs: Temperature 97.7 F Pulse Rate 76 Respiratory Rate 16 Blood Pressure 110/60 Pulse Oximetry 99 Oxygen Delivery Me thod Simple Mask Oxygen Flow Rate 8 Fraction of Inspir ed Oxygen Hydration adequate: Yes Nausea and vomiting: No Pain level: Actively managed Mental status: Baseline (Appropriate for immediate post anesthesia )
[2024-08-14] MEDS: fentaNYL 50 mcg/mL INJ 2mL IVP (16:55)
[2024-08-14] MEDS: mupirocin oint 22 gm 1 APPLIC NASAL (17:58)
[2024-08-14] MEDS: chlorhexidine gluconate 0.12% Btl 473 mL 30 ML MUCOUS MEM ×2 (17:58→20:18)
[2024-08-14] MEDS: oxyCODONE 5 mg IR Tab/Cap PO (17:58)
[2024-08-14] MEDS: calcium carbonate 500 mg Chew Tablet 1000 MG PO (17:59)
[2024-08-14] MEDS: gabapentin 300 mg Capsule PO (17:59)
[2024-08-14] MEDS: sennosides-docusate Tablet 2 TAB PO (17:59)
[2024-08-14] MEDS: CELEcoxib 200 mg Capsule PO (17:59)
[2024-08-14] MEDS: iron polysaccharide complex 150 mg Capsule PO (17:59)
[2024-08-14] MEDS: tranexamic acid 1,000 MG/100 ML PREMIX 600 MG IV (19:52)
[2024-08-15] VITALS (9 sets, daily range): BP systolic 98–119; BP diastolic 58–73; PULSE 58–83; RESP 16–20; TEMP 36.7–37.1; O2SAT 93–97
[2024-08-15] MEDS: acetaminophen 1,000 MG/100 ML PIGGYBACK 400 MG IV ×2 (05:16→13:05)
[2024-08-15] MEDS: CELEcoxib 200 mg Capsule PO (05:16)
[2024-08-15] MEDS: ceFAZolin 2,000 mg SDV 2000 MG IVP ×2 (05:16→13:05)
[2024-08-15 05:56] LABS: Basophils % 0.1 %; Hematocrit 39.2 % (36-47); Lymphocytes # 1.9 10^3/uL (0.8-4.8); Lymphocytes % 10.5 %; Mean Corpuscular HGB Conc 32.1 g/dL (30-55); Mean Corpuscular Volume 96.3 fl (85-98); Monocytes % 5.3 %; Neutrophils % 83.5 %; Nucleated Red Blood Cells % 0 %; Platelet Count 211 10^3/cmm (157-399); Red Blood Count 4.07 10^6/uL (3.85-5.65); Red Cell Distribution Width 13.3 % (12.1-15.1); White Blood Count 17.84 10^3/uL (3.29-11.43)
[2024-08-15 06:11] LABS: Anion Gap 18.5 (5-19); Blood Urea Nitrogen 10 mg/dL (6-20); Calcium 8.8 mg/dL (8.5-10.5); Carbon Dioxide 20 mmol/L (22-29); Chloride 104 mmol/L (98-107); Creatinine Clr Calc Pharmacy 97.7933; Glomerular Filtration Rate 87.9 mL/min (90-130); Glucose 133 mg/dL (65-115); Osmolality Calculated 287 mOsm/kg (285-295); Potassium 4.5 mmol/L (3.5-5.1); Sodium 138 mmol/L (136-145)
[2024-08-15] MEDS: oxyCODONE 5 mg IR Tab/Cap PO ×2 (07:07→11:23)
[2024-08-15] MEDS: calcium carbonate 500 mg Chew Tablet 1000 MG PO (08:30)
[2024-08-15] MEDS: iron polysaccharide complex 150 mg Capsule PO (08:30)
[2024-08-15] MEDS: cholecalciferol (vitamin D3) 1,000 unit Tablet 1000 UNIT PO (08:30)
[2024-08-15] MEDS: gabapentin 300 mg Capsule PO (08:31)
[2024-08-15] MEDS: mupirocin oint 22 gm 1 APPLIC NASAL (08:31)
[2024-08-15] MEDS: aspirin 325 mg EC Tablet PO (08:31)
[2024-08-15] MEDS: sennosides-docusate Tablet 2 TAB PO (08:31)
[2024-08-15] MEDS: multivitamin therapeutic Tablet 1 TAB PO (08:31)
[2024-08-15] MEDS: chlorhexidine gluconate 0.12% Btl 473 mL 30 ML MUCOUS MEM (08:31)
[2024-08-15] MEDS: lisinopril 10 mg Tablet PO (08:31)
--- NOTE | 2024-08-15 09:13 | PC.CHAP ---
Pastoral Care Encounter/Spiritual Assessment Type of Contact [] Declined safety coordinator visit [] Patient/Family/Request visit [] Outpatient visit [] Follow-up visit [] Physician referral [] Code/Alert [x] Routine visit [] Staff referral [] Actively dying [] Patient sleeping [] Family support [] [] Out of room [] Palliative care [] [] Receiving care in room [] Pre-surgical visit [] Trauma [] Long length of stay [] ICU visit [] Other: Relational/Emotional Strength [x] Patient feels connected with others/family/visitors/staff [] Distress [] Loneliness/isolation [] Abandonment Spirituality of Patient [x] Person of Ryann [] Attends Church of their Ryann [x] Believes in Prayer [] Reads Bible or Mormon materials [] There are Spiritual issues to be addressed Curtain Stretcher Assembler Interventions [x] Prayer [x] Active listening [] Non-anxious presence [x] Spiritual/emotional support [] Crisis/trauma care [] Spiritual counseling [] Bereavement support [] Provided bereavement packet [] Provided Bible/devotional materials [] Provided toy/stuffed animal, coloring book to patient or family member [] Provided Communion [] Anointing/[place] [] Salvation [x] Completed spiritual assessment [] Other: Impact on Illness or Injury [] Angry [] Fearful [] Anxious [] Often cries [] Exhaustion [] Unable to work [] Unable to attend hoahaoism [] Unable to walk/stand [] Unable to read [] Unable to drive [] Unable to eat/drink [] Unable to sleep [] Unable to be with family [] Patient intubated [] Other: Summary Time spent with patient 5 min
[2024-08-15] MEDS: ibuprofen 600 mg Tablet PO (09:41)
--- NOTE | 2024-08-15 10:28 | P.DS_ITS ---
Discharge Providers Date of Admission: 08/14/24 15:58 Date of Discharge: August 15, 2024 Attending Provider at Admission: Simran Hankins MD Attending Provider at Discharge: Simran Hankins MD Primary Care Provider: Darleen Hutchison NP Diagnoses at Discharge Discharge Diagnosis (1) Osteoarthritis of right hip: Status: Chronic Qualifiers: Osteoarthritis type: primary Qualified Code(s): M16.11 - Unilateral primary osteoarthritis, right hip (2) S/P total right hip arthroplasty: Status: Acute Permanent problem details: Date of procedure: August 14, 2024 Diagnosis: Severe degenerative osteoarthritis right hip with femoral head collapse and large acetabular osteophytes Procedure done: Right total hip arthroplasty Implants: The [employer] total hip system with the following implants: A 52 mm Trident II solid back acetabular shell with an E Alpha code, an MDM cementless liner 42 mm inner diameter by E alpha code and Accolade II size 5 with 127 degree neck angle hip stem with a 28 mm outer diameter +0 mm neck offset and a orthodox X3 insert size 28 mm inner diameter by 42E Reason for Visit Reason for Visit: M16.11 Brief History: This 54-year-old woman presents today for a right total hip arthroplasty. Patient has severe limitations in range of motion and and activities of daily living. Patient notes that the pain impacted her sleeping and limited her walking. The patient did not use at the time of admission any assistive devices. Treatment options were discussed in the office with the patient, and plans were made to proceed with total hip arthroplasty. Risks and complications were discussed with her, and consents were signed. Patient was again seen on the day of surgery and further discussion was accomplished once again. Hospital Course Hospital Course This 54-year-old woman was admitted to the hospital under observation status following right total hip arthroplasty. She did well the first postoperative day. She worked with physical therapy and had a set of home exercises given to her. She understood posterior hip precautions, and she felt comfortable being discharged to home. She will follow-up with us in the office as scheduled. Physical Exam Const: COMMON NORMALS: no acute distress, average body habitus, patient oriented x3 and alert GENERAL APPEARANCE: cooperative and comfortable ORIENTATION/CONSCIOUSNESS: Yes awake HENMT: COMMON NORMALS: normocephalic and atraumatic HEAD & SCALP: normocephalic and atraumatic Eye: GENERAL EYE: appearance normal, both eyes and all related structures Chest: COMMONS NORMALS: normal inspection of the chest Resp: COMMON NORMALS: normal respiratory effort EFFORT & INSPECTION: Yes able to speak in complete sentences and Yes symmetric chest movement Extremity: RIGHT LOWER EXTREMITY: Yes hip joint (Dressing is dry and intact.) Right hip: Yes inspection (No ecchymosis), Yes palpation (No significant tenderness), Yes ROM (Not evaluated) and Yes neurovascular exam (Intact distally) Neuro: COMMON NORMALS: patient oriented x3 SENSORIUM/ORIENTATION: Yes alert Psych: COMMON NORMALS: mental status grossly normal APPEARANCE: Yes grossly normal ATTITUDE: Yes calm and Yes engaged ATTENTION/CONCENTRATION: Yes attention grossly intact Skin: COMMON NORMALS: no rashes or lesions noted GENERAL SKIN EXAM: no rashes or lesions noted Urinary Catheter Management: [place]: Cath Placed During This Visit: yes, but has since been removed by the nurse Reason for Continuing Indwelling Catheter: Other Urinary Catheter Date of Insertion: 08/14/24 Urinary Catheter Time of Insertion: 14:00 Date Urinary Catheter Removed: 08/15/24 Time Urinary Catheter Discontinued: 05:30 Discharge Data Studies Completed and Pending Completed Studies During Hospitalization Category Date Time Status XR pelvis 1-2V* [id number] Routine Exams 08/14/24 16:34 Completed Radiology Impressions Pelvis X-Ray 08/14/24 16:34 IMPRESSION: Intact postoperative hip prosthesis Laboratory Results WBC 17.84 10^3/uL (3.29-11.43) H 08/15/24 05:30 RBC 4.07 10^6/uL (3.85-5.65) 08/15/24 05:30 Hgb 12.60 g/dL (11.27-16.99) 08/15/24 05:30 Hct 39.2 % (36-47) 08/15/24 05:30 MCV 96.3 fl (85-98) 08/15/24 05:30 MCH 31.0 pg (27-33) 08/15/24 05:30 MCHC 32.1 g/dL (30-55) 08/15/24 05:30 RDW 13.3 % (12.1-15.1) 08/15/24 05:30 Plt Count 211 10^3/cmm (157-399) 08/15/24 05:30 MPV 12.0 fL (7.4-10.4) H 08/15/24 05:30 Neut % (Auto) 83.5 % 08/15/24 05:30 Lymph % (Auto) 10.5 % 08/15/24 05:30 [place] % (Auto) 5.3 % 08/15/24 05:30 Eos % (Auto) 0.0 % 08/15/24 05:30 Baso % (Auto) 0.1 % 08/15/24 05:30 Neut # (Auto) 14.90 10^3/uL (1.8-7.7) H 08/15/24 05:30 Lymph # (Auto) 1.9 10^3/uL (0.8-4.8) 08/15/24 05:30 [place] # (Auto) 1.0 10^3/uL (0.2-0.9) H 08/15/24 05:30 Eos # (Auto) 0.0 10^3/uL (0.0-0.8) 08/15/24 05:30 Baso # (Auto) 0.0 10^3/uL (0.0-0.1) 08/15/24 05:30 Nucleated RBC % (auto) 0 % 08/15/24 05:30 Nucleated RBCs # 0.0 /100WBC 08/15/24 05:30 Sodium 138 mmol/L (136-145) 08/15/24 05:30 Potassium 4.5 mmol/L (3.5-5.1) 08/15/24 05:30 Chloride 104 mmol/L (98-107) 08/15/24 05:30 Carbon Dioxide 20 mmol/L (22-29) L 08/15/24 05:30 Anion Gap 18.5 (5-19) 08/15/24 05:30 BUN 10 mg/dL (6-20) 08/15/24 05:30 Creatinine 0.7 mg/dL (0.5-0.9) 08/15/24 05:30 GFR Calculation 87.9 mL/min (90-130) L 08/15/24 05:30 Glucose 133 mg/dL (65-115) H 08/15/24 05:30 Calculated Osmolality 287 mOsm/kg (285-295) 08/15/24 05:30 Calcium 8.8 mg/dL (8.5-10.5) 08/15/24 05:30 Vitals Last Vital Signs Temp 98.0 F 08/15/24 08:46 Pulse 83 08/15/24 08:46 Resp 19 H 08/15/24 07:38 BP 117/62 08/15/24 08:46 Pulse Ox 93 08/15/24 08:46 O2 Del Method Room Air 08/15/24 07:38 O2 Flow Rate 8 08/14/24 16:53 Discharge Plan Discharge Patient Disposition: Home Condition: Stable Prescriptions: New celecoxib 200 mg Capsule 200 mg PO 1XD 30 Days Qty: 30 0RF acetaminophen 500 mg Tablet 1,000 mg PO Q8H 15 Days Qty: 90 0RF aspirin 325 mg Tablet,Delayed Release (Dr/Ec) 325 mg PO DAILY 30 Days Qty: 30 0RF oxycodone 5 mg Tablet 5 mg PO Q4H PRN (Reason: Moderate To Severe Pain) 7 Days Qty: 30 0RF Continued multivitamin Tablet 1 tab PO DAILY lisinopril 10 mg tablet 10 mg PO DAILY Qty: 30 2RF exenatide 5 mcg/dose (250 mcg/mL) 1.2 mL pen injector 5 mcg SUBCUT BID Qty: 1.2 2RF fluticasone propionate [Flonase Allergy Relief] 50 mcg/actuation spray,suspension 2 spray intranasal DAILY PRN (Reason: allergy symptoms) Rx Instructions: administer into each nostril gabapentin 300 mg capsule 300 mg PO BID Rx Instructions: TAKE 1 CAPSULE BY MOUTH TWO TIMES A DAY FOR CHRONIC PAIN AND POST MENOPAUSAL SYMPTOMS Held ibuprofen 600 mg tablet 600 mg PO Q8H PRN (Reason: pain) Qty: 30 0RF Hold Instructions: Resume on 09/12/24. You may resume this when Celebrex has been completed Discharge Orders: Discharge Order (Routine); Ordered 08/15/24 Ordered By: Simran Hankins Referrals: Simran Hankins MD [Physician] - 08/27/24 10:45 am Discharge Diet: Advance as tolerated and Usual diet Discharge Activity: Limit activity as instructed, Use walker/crutches as instructed and As per PT/OT instructions Patient Instructions: Aspirin (By mouth), Oxycodone, Rapid Release (By mouth), Celecoxib (By mouth), Acute Wound Care (DC), Total Hip Replacement (GEN), Joint Replacement Stoplight, Opioid Safety, Post Anesthesia Care Activity Restrictions/Additional Instructions: Posterior precautions. Maintain dressing until it either pulls up and begins to leak or comes off on its own. We will remove it in clinic if there is still sealed. Weightbearing as tolerated. Exercises per instructions at hospital. Call with any issues or concerns. Discharge Attestations Time Spent in Discharge Care*: greater than 30 min Specific Discharge Activities: educating patient, documenting/other paperwork and evaluating patient/reviewing data Quality Metrics Clinical Quality Measures [ No reported AMI, CVA or VTE this stay] Coding Level of Care Code Acute Code for [facility] Fwd Diagnoses Primary osteoarthritis of right hip M16.11 Osteoarthritis type: primary S/P total right hip arthroplasty Z96.641
== END 2024-08-15 13:30 | disposition home or self-care (01) ==
LOC: MEDSURG 15:59
PROVIDERS: Admitting Provider Specialist; Visit Provider Specialist
PROC: (CPT 27130; principal; 2024-08-14 13:50)
DX: M16.11 Unilateral primary osteoarthritis, right hip (principal); M25.751 Osteophyte, right hip; J44.9 Chronic obstructive pulmonary disease, unspecified; E78.5 Hyperlipidemia, unspecified; E66.01 Morbid (severe) obesity due to excess calories; Z68.38 Body mass index [BMI] 38.0-38.9, adult; F17.210 Nicotine dependence, cigarettes, uncomplicated; I10 Essential (primary) hypertension
CPT/HCPCS: 27130; 36415; 51702; 72170; 80048; 85025; 97110; 97116; 97161; 97165; A4216; C1776; G0378; J0131; J0666; J0690; J1100; J1171; J2405; J2704; J3010; J3370; J3490; J7030; J9999

== ENCOUNTER → 2024-08-27 10:49 | Outpatient (BNVA) | payer MEDICAID, SELFPAY | PROVIDERS: Visit Provider Specialist | DX: Z98.890 Other specified postprocedural states (principal); Z96.641 Presence of right artificial hip joint | CPT/HCPCS: 73502 ==

== ENCOUNTER 2025-02-01 10:34 | Outpatient (CLI) | payer MEDICAID, SELFPAY ==
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
== END 2025-02-01 10:35 | disposition home or self-care (01) ==
LOC: RAD 10:37
PROVIDERS: Visit Provider Pediatrics
DX: Z04.1 Encounter for examination and observation following transport accident (principal); M25.711 Osteophyte, right shoulder; M19.011 Primary osteoarthritis, right shoulder; M41.86 Other forms of scoliosis, lumbar region; M48.061 Spinal stenosis, lumbar region without neurogenic claudication; M47.816 Spondylosis without myelopathy or radiculopathy, lumbar region; M25.78 Osteophyte, vertebrae; M47.812 Spondylosis without myelopathy or radiculopathy, cervical region
CPT/HCPCS: 72040; 72100; 73030

== ENCOUNTER 2025-03-11 06:45 | Outpatient (CLI) | payer MEDICAID, SELFPAY ==
--- NOTE | 2025-03-11 07:15 | MR_ITS ---
WS: [id number] MRI RIGHT SHOULDER NONCONTRAST TECHNIQUE: Sagittal T2, coronal T1, T2 and proton density imaging. Axial gradient PDE imaging. CLINICAL INFORMATION: Right shoulder pain COMPARISON: None. FINDINGS: Moderate to severe degenerative arthritis AC joint advanced for patient of this age. Small amount of fluid and edema with synovial thickening at the AC joint. Mild downsloping acromion with narrowing of the subacromial space. Impingement on the underlying rotator cuff. Subacromial spurring. Tendinopathy supraspinatus and infraspinatus. Tiny insertional tear distal supraspinatus. No tendon retraction. Cystic degenerative changes greater tuberosity. Normal teres minor. Normal subscapularis tendon. Biceps tendon appears intact within the bicipital groove. Intra-articular biceps tendon appears intact. Moderate to severe degenerative narrowing of the glenohumeral articulation advanced for patient this age. Degenerative fraying of the glenoid labrum. No significant joint effusion. MR/MR shoulder RT wo con* [id number] IMPRESSION: 1. Moderate to severe degenerative arthritis AC joint advanced for patient thi s age with narrowing of the subacromial space 2. Tendinopathy supraspinatus and infraspinatus. Small insertional tear distal supraspinatus. No tendon retraction. 3. Rotator cuff is otherwise intact. 4. Biceps tendon is somewhat diminutive but intact within the bicipital groove . 5. Intra-articular biceps tendon appears intact. 6. Moderate to severe degenerative narrowing glenohumeral articulation also ad vanced for patient this age. 7. Visually small shoulder capsule. Edema of the rotator interval. Recommend c orrelation for adhesive capsulitis in the appropriate clinical setting
== END 2025-03-11 06:46 | disposition home or self-care (01) ==
LOC: RAD 06:47
PROVIDERS: Visit Provider Orthopaedic Surgery
DX: M12.811 Other specific arthropathies, not elsewhere classified, right shoulder (principal)
CPT/HCPCS: 73221

== ENCOUNTER → 2025-04-01 11:47 | Outpatient (BNVA) | payer MEDICAID, SELFPAY | PROVIDERS: Visit Provider Family Medicine | DX: Z01.818 Encounter for other preprocedural examination (principal); M19.011 Primary osteoarthritis, right shoulder; Z87.828 Personal history of other (healed) physical injury and trauma; Z96.641 Presence of right artificial hip joint; F17.210 Nicotine dependence, cigarettes, uncomplicated | CPT/HCPCS: 80053; 81000; 85025 ==

== ENCOUNTER 2025-04-10 11:18 | Day surgery (SDC) | payer MEDICAID, SELFPAY ==
[2025-04-10] VITALS (11 sets, daily range): BP systolic 114–150; BP diastolic 59–83; PULSE 68–89; RESP 15–19; TEMP 36.2–36.7; O2SAT 89–98; BMI 37.4
--- NOTE | 2025-04-10 12:23 | P.ANESASSM_ITS ---
Pre-Anesthetic Assessment Height/Weight: Height 5 ft 1 in Weight 198 lb Temp Pulse Resp BP Pulse Ox O2 Del Method 98.1 F 79 18 144/77 95 Room Air 04/10/25 11:56 04/10/25 11:56 04/10/25 11:56 04/10/25 11:56 04/10/25 11:56 04/10/25 11:56 Preop Diagnosis: Right rotator cuff tear Operation Date: 04/10/25 12:55 Proposed Procedures p RIGHT Shoulder Arthroscopy(Right) - Man Quevedo MD s Labral Debridement(Right) - Man Quevedo MD s RIGHT Rotator Cuff Repair(Right) - Man Quevedo MD s Acromioplasty(Right) - Man Quevedo MD Was Beta Arthur taken within 24 hours: N/A Was Clonidine taken within 24 hours: N/A Last intake: Intake Last Liquid Date 04/10/25 Last Liquid Time 04:30 Last Solid Date 04/09/25 Last Solid Time 16:30 Social Tobacco and No alcohol Exam alert, oriented x 3, clear to auscultation bilaterally and regular rate & rhythm Airway Submandibular: within normal limits Cervical ROM: within normal limits Mallampati: Class II Dentition: full Anesthetic Plan ASA status: 3 Anesthesia: General and Regional (specify below) Other: No prior issues with anesthesia NPO since yesterday evening History of hypertension on lisinopril Smokes nicotine METs greater than 4 but does state that she is winded after walking up a couple flights of stairs Plan for general anesthesia with preop nerve block Medications/Allergies Home Medications ?Medication ?Instructions ?Recorded ?Confirmed ?Last Taken ?Type multivitamin 1 tab PO DAILY 01/17/2401/2404/09/25 History fluticasone propionate 50 2 spray intranasal DAILY PRN 08/13/24 04/09/25 Unknown History mcg/actuation nasal allergy symptoms spray,suspension (Flonase Allergy Relief) ibuprofen 800 mg tablet 800 mg PO TID PRN pain #90 t abs 02/25/25 04/09/25 Unknown Rx lisinopril 10 mg tablet 10 mg PO DAILY #90 tabs 03/0204/09/25 04/09/25 Rx gabapentin 300 mg capsule 300 mg PO TID #90 caps 03/1804/09/25 04/10/25 Rx cyclobenzaprine 5 mg tablet 5 mg PO TID PRN muscle spa sm #30 04/08/25 04/09/25 Unknown Rx tabs topiramate 25 mg tablet 25 mg PO DAILY #30 tabs 12/2404/09/25 Unknown Rx mirtazapine 7.5 mg tablet 7.5 mg PO .nightly PRN Anxie ty 04/09/25 04/09/25 Unknown History Allergies Allergy/AdvReac Type Severity Reaction Status Date / Time No Known Allergies Allergy Verified 04/08/25 13:37 [facility] Anesthesia Medical History Extrusion of suture Skin tag Abnormal mammogram of right breast Screening for breast cancer 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; on CT 02/22; to repeat 3 months Elevated serum lactate dehydrogenase (LDH) Nicotine dependence, cigarettes, uncomplicated Elevated white blood cell count, unspecified Tachycardia Arthralgia Elevated blood pressure reading in office with white coat syndrome, without d iagnosis of hypertension Chronic back pain greater than 3 months duration Osteoarthritis of right hip Dyslipidemia (high LDL; low HDL) Joint pain in both hands Obesity (BMI 35.0-39.9 without comorbidity) Hypertension Carpal tunnel syndrome of right wrist Symptomatic postsurgical menopause Surgical History Hx of hysterectomy Total Hyst w/ BSO; done for cysts; in her 30s; no hx of cancer Family History Mother Cancer LEUKEMIA, Brain aneurysm Father CAD (coronary artery disease) Scleroderma Social History Smoking and tobacco/nicotine status: current every day tobacco/nicotine user cigarettes Packs smoked per day: 1 Alcohol intake: former 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 Substance/Drug Use: never Household members: spouse and children Marital status: Number of children: 4 Highest education level completed: 10th Grade Current occupational status: unemployed 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
--- NOTE | 2025-04-10 12:34 | W.PM.OPSUD ---
Surgery/Procedure H&P Update DATE OF PROCEDURE: April 10, 2025 DATE H&P PERFORMED: 04/01/25 H&P UPDATE INFORMATION: I have reviewed H&P completed within last 30 days, I have examined patient prior to procedure and No changes to prior documentation PLANNED PROCEDURE: Operation Date: 04/10/25 12:55 Proposed Procedures p RIGHT Shoulder Arthroscopy(Right) - MD rebecca Lazcano Labral Debridement(Right) - MD rebecca Lazcano RIGHT Rotator Cuff Repair(Right) - MD rebecca Lazcano Acromioplasty(Right) - Man Quevedo MD
--- NOTE | 2025-04-10 13:27 | ANES.PROC ---
Anesthesia Procedures Procedure/Date: 04/10/25 Right interscalene peripheral nerve block for postoperative pain control Nerve Block ^: Nerve Block 1: Main Anesthesia: other (100 mcg fentanyl and 2 mg Versed) Time Out Performed: Yes Consent: requested by attending/covering physician and from patient Laterality: Right Nerve block location: interscalene Anesthesia monitors applied: pulse oximetry, EKG, BP cuff and oxygen Nerve block position: supine Anesthetic Used: ropivicaine 0.5% Amount of anesthesia used (mL): 30 Ultrasound used to: recognize landmarks Nerve Stimulator Used?: Yes Interscalene/Femoral BLK: other needle (pjunk 4inch) Injection: neg aspiration of heme Patient Tolerated Procedure: well Complications: none Additional Comments: Decadron 4 mg added to block
[2025-04-10] MEDS: ceFAZolin 2,000 mg SDV 2000 MG IVP (13:40)
--- NOTE | 2025-04-10 14:25 | PC.NURSE ---
While prepping, patient noted to have a small circular red area on side of left breast, and another on interior upper left arm. Each approximately 1/4 of an inch in size. A Luis Armando observed area and notified Dr. Quevedo.
--- NOTE | 2025-04-10 15:24 | PM.OP ---
Operative Report Date of procedure: April 10, 2025 Surgeon: Man Quevedo MD Procedure: Preoperative diagnosis: Internal derangement of the right shoulder Postoperative diagnosis: Degenerative tearing of the superior inferior and anterior labrum, torn rotator cuff, acromial impingement, adhesions Procedure: Diagnostic right shoulder arthroscopy with debridement of the labrum, debridement of rotator cuff, mini open acromioplasty, rotator cuff repair, lysis of adhesions Surgeon: Man Quevedo MD Insurance Loss Assessor: LEVI Solares's assistance was necessary for positioning the patient, assistance during the procedure, wound closure and dressing placement Anesthesia: General With preoperative scalene block EBL: 50 cc Indications: Ana Lilia is a 55-year-old white female was presented to myself with debilitating right shoulder pain. She has loss of elevation above the shoulder height. Difficulty with activities of daily living. Subsequent MRI demonstrated damage to the anterior labrum, damage to the rotator cuff and impingement of the acromion. Therefore having failed all conservative measures was offered a diagnostic shoulder arthroscopy with all indicated procedures. All risk benefits treatment alternatives were discussed with her and she was agreeable to this at this time. Procedure: After obtaining her consent patient had preoperative skin block administered in preop holding area. Patient was then taken to the operating room placed on the op table supine position general anesthetic administered. Once good anesthesia achieved patient was placed in the beachchair position with her head secured well and the body padded out appropriately. Right shoulder and arm were prepped and draped usual fashion. After surgical timeout standard posterior portals made #11 blade and camera cams placed into the glenohumeral joint line posteriorly. Anterior working portal was also placed through the portal anteriorly through an incision from an 11 blade. Evaluation of the shoulder demonstrated fraying and tearing and degenerative changes of the superior labrum anterior labrum and inferior labrum. All these areas debride down to stable cartilage space mechanical shaver. No through and through tear of the labrum from the glenoid was identified. Biceps tendon was in good repair. Presenting the camera laterally over the top of the humeral head tearing of the rotator cuff could be identified just lateral to the biceps hiatus. At this point arthroscopy was discontinued. Anterior lateral incision was made in a minimally invasive fashion over the lateral acromion. Sharp dissection taken down down to subcutaneous tissue electrocautery same stasis. Electrocautery was then used to dissect all the way down to the anterior edge of the acromion and deltoid was removed from the anterior edge of the acromion with cautery. By digital palpation grade 2 hook of the acromion could be identified pressing down on the on the rotator cuff. Using a microsagittal saw acromioplasty was undertaken and decompression was achieved. Fragments were removed with a rongeur. After further evaluation and removal some of the bursa a small tear of the supraspinatus tendon close to the bicipital groove was identified. This was then freshened with a #15 blade. 2 separate juggernaut anchors were placed along this course about 1 cm apart. Each of these double armed with suture. Rotator cuff was repaired with horizontal mattress type sutures. A separate [id number] suture was also used for a longitudinal split in the rotator cuff. Once adequate repair had been achieved shoulders washed sterile irrigation. Retractors removed. Fascia of the deltoid was reapproximated back to the acromion with #0 Vicryl [id number] sutures. Subcutaneous was reapproximated 3-0 Vicryl erupted sutures and skin was closed with running 4-0 Prolene suture. Wounds are cleaned and dry dressed with Xeroform gauze sterile gauze dressing ABDs and adhesive tape. Patient was placed abduction pillow and sling awakened and transferred recovery in stable condition
== END 2025-04-10 17:38 | disposition home or self-care (01) ==
PROVIDERS: Visit Provider Orthopaedic Surgery
PROC: (CPT 29805; principal; 2025-04-10 12:35)
PROC: (CPT 23412; 2025-04-10 12:35)
PROC: (CPT 23412; 2025-04-10 12:35)
PROC: (CPT 23130; 2025-04-10 12:35)
DX: M24.9 Joint derangement, unspecified (principal); S43.431A Superior glenoid labrum lesion of right shoulder, initial encounter; X58.XXXA Exposure to other specified factors, initial encounter; M75.101 Unspecified rotator cuff tear or rupture of right shoulder, not specified as traumatic; M75.01 Adhesive capsulitis of right shoulder; I10 Essential (primary) hypertension; F17.210 Nicotine dependence, cigarettes, uncomplicated; R00.0 Tachycardia, unspecified; E78.5 Hyperlipidemia, unspecified; E66.9 Obesity, unspecified; Z68.37 Body mass index [BMI] 37.0-37.9, adult
CPT/HCPCS: 23412; 23130; C1713; J0690; J1100; J1885; J2250; J2405; J2704; J3010; J3373; J3490; J7030; J9999